=== PATIENT | male | born 1970 | race Caucasian/White ===

== ENCOUNTER 2021-04-04 10:16 | Outpatient (REF) | payer OTHER, SELFPAY ==
[2021-04-04 13:40] LABS: MANUAL DIFF FLAG NO
[2021-04-04 13:47] LABS: Basophils Percent Auto 0.8 % (0-2); Eosinophils Absolute Auto 0.2 X10*3/uL (0.0-0.4); Eosinophils Percent Auto 4.6 % (0-4); Hematocrit 45.4 % (42-52); Imm Gran Abs Auto 0.02 X10*3/uL (0.00-0.03); Imm Gran Pct Auto 0.4 % (0.0-0.4); Lymphocytes Absolute Auto 1.8 X10*3/uL (1.2-4.9); Lymphocytes Percent Auto 34.2 % (20-40); Mean Corpuscular HGB Conc 35.2 g/dl (31.0-36.0); Mean Corpuscular Hemoglobin 32.1 pg (27.0-33.0); Mean Corpuscular Volume 91.2 fL (80-98); Mean Platelet Volume 10.6 fL (9.4-12.4); Monocytes Absolute Auto 0.5 X10*3/uL (0.1-1.2); Monocytes Percent Auto 9.6 % (2-11); Neutrophils Absolute Auto 2.6 X10*3/uL (2.0-8.3); Neutrophils Percent Auto 50.4 % (45-73); Platelet Count 257 X10*3/uL (160-400); Red Blood Count 4.98 X10*6/uL (4.60-5.80); Red Cell Distribution Width 12.2 % (11.0-16.0); White Blood Count 5.2 X10*3/uL (4.8-10.8)
[2021-04-04 14:04] LABS: Alanine Aminotransferase 39 U/L (0-40); Albumin Level 4.6 g/dL (3.5-5.0); Alkaline Phosphatase 70 U/L (39-117); Anion Gap 13 (12-20); Aspartate Amino Transferase 25 U/L (5-37); Bilirubin Total 0.7 mg/dL (0.0-1.0); Blood Urea Nitrogen 12 mg/dL (9-16); Calcium 9.8 mg/dL (8.4-10.2); Carbon Dioxide 27 mmol/L (22-29); Chloride 104 mmol/L (96-108); Cholesterol 165 mg/dL; Estimated Glomerular Filt Rate > 60; Glucose Fasting 106 mg/dL (60-99); HDL Cholesterol 46 mg/dL; LDL Cholesterol Calculated 78 mg/dl; Potassium 4.7 mmol/L (3.3-5.1); Sodium 139 mmol/L (135-145); Total Protein 7.3 g/dL (6.5-8.0); Triglycerides 209 mg/dL
[2021-04-04 14:24] LABS: TSH reflex Free T4 1.18 uIU/mL (0.32-4.0)
[2021-04-04 14:38] LABS: Creatinine Urine 122.59 mg/dL; Microalbum/Creatinine Ratio Ur 5.7 ug/mg cr
== END 2021-04-04 10:17 | disposition home or self-care (01) ==
LOC: HO.WFDLDS 10:16
PROVIDERS: Visit Provider Family Medicine
DX: Z00.00 Encounter for general adult medical examination without abnormal findings (principal); I10 Essential (primary) hypertension
CPT/HCPCS: 36415; 80053; 80061; 82043; 84443; 85025

== ENCOUNTER 2021-09-08 08:54 | Outpatient (REF) | payer OTHER, SELFPAY ==
[2021-09-08 11:07] LABS: Estimated Average Glucose 123 mg/dL; Hemoglobin A1c % 5.9 %
[2021-09-08 11:24] LABS: Anion Gap 10 (12-20); Blood Urea Nitrogen 15 mg/dL (9-16); Calcium 9.7 mg/dL (8.4-10.2); Carbon Dioxide 29 mmol/L (22-29); Chloride 106 mmol/L (96-108); Estimated Glomerular Filt Rate > 60; Glucose Random 132 mg/dL (60-115); Potassium 4.8 mmol/L (3.3-5.1); Sodium 140 mmol/L (135-145)
[2021-09-08 12:17] LABS: Creatinine Urine 110.22 mg/dL; Microalbum/Creatinine Ratio Ur 6.3 ug/mg cr
== END 2021-09-08 08:55 | disposition home or self-care (01) ==
LOC: HO.WFDLDS 08:54
PROVIDERS: Visit Provider Family Medicine
DX: Z00.00 Encounter for general adult medical examination without abnormal findings (principal); E11.9 Type 2 diabetes mellitus without complications; I10 Essential (primary) hypertension
CPT/HCPCS: 36415; 80048; 82043; 83036

== ENCOUNTER 2022-03-30 07:20 | Outpatient (REF) | payer OTHER, SELFPAY ==
[2022-03-30 11:42] LABS: Alanine Aminotransferase 26 U/L (0-40); Albumin Level 4.5 g/dL (3.5-5.0); Alkaline Phosphatase 58 U/L (39-117); Anion Gap 12 (12-20); Aspartate Amino Transferase 18 U/L (5-37); Bilirubin Total 0.7 mg/dL (0.0-1.0); Blood Urea Nitrogen 14 mg/dL (9-16); Calcium 9.2 mg/dL (8.4-10.2); Carbon Dioxide 24 mmol/L (22-29); Chloride 107 mmol/L (96-108); Cholesterol 164 mg/dL; Estimated Glomerular Filt Rate > 60; Glucose Fasting 118 mg/dL (60-99); HDL Cholesterol 44 mg/dL; LDL Cholesterol Calculated 91 mg/dl; Potassium 4.5 mmol/L (3.3-5.1); Sodium 138 mmol/L (135-145); Total Protein 6.9 g/dL (6.5-8.0); Triglycerides 147 mg/dL
[2022-03-30 11:56] LABS: Prostate Specific Antigen Scr 0.25 ng/mL (<0.05-4.0); TSH reflex Free T4 1.23 uIU/mL (0.32-4.0)
== END 2022-03-30 07:21 | disposition home or self-care (01) ==
LOC: HO.WFDLDS 07:20
PROVIDERS: Visit Provider Family Medicine
DX: Z00.00 Encounter for general adult medical examination without abnormal findings (principal); Z12.5 Encounter for screening for malignant neoplasm of prostate
CPT/HCPCS: 36415; 80053; 80061; 84153; 84443

== ENCOUNTER 2022-05-16 07:00 | Outpatient (RCR) | payer OTHER, SELFPAY ==
--- NOTE | 2022-04-12 11:48 | MHC.PT.EP ---
[facility] [place] Office [place] [facility] [place] Office [address] Bella Mathew [address] [phone] F: [phone] F: [phone] F: [phone] F: [phone] Physical Therapy Plan of Care Date of Evaluation: Date of Surgery: NA Diagnosis: DORSALGIA Assessment: Pt IS 51 YO M REFERRED TO PT FROM DR CAIN WITH DORSALGIA. Pt REPORTS CHRONIC BACK PAIN (MRI IN PAST WITH NEUROSURGEON VISIT (SURGERY NOT RECOMMENDED) AND INJECTIONS WITH RELIEF IN THEL PAST). REPORTS THIS LAST BOUT OF BACK PAIN STARTED IN SEPTEMBER (HE ATTRIBUTES PAIN TO WORK..LONG DRIVES, LIFTING ETC) REPORTS AT TIMES (AFTER SIT) LEGS FEEL WEAK WHEN HE STANDS (NEG WEAKNESS NOTED IN QUAD/HS WITH MMT) BUT NOTED TO HAVE POOR CORE STRENGTH (UNABLE TO CLEAR SHLDER BLADES WITH SIT UP). Pt WITH TIGHTNESS NOTED IN TRUNK AND LE/HIP MMS. SHOULD BENEFIT FROM PT TO ADDRESS THESE ISSUES Frequency and Duration: The patient will be seen 2X/WK X 6WKS Short Term Goals: 1. INCREASED POSTURE AWARENESS AND AWARENESS BACK CARE 2. LESS LEG SXS REPORTED Fdc Goals: 1. I HEP WITH DC EX PLAN 2. DECREASED BACK PAIN AT LEAST 50% WITH ADLS 3. [place] ( [place] [facility] Treatment Plan: Modalities to reduce pain, spasms and effusion. Manual therapy to restore motion and function. Therapeutic exercise to improve strength and flexibility. Neuromuscular re-education for posture and balance. Therapeutic activities to return to functional activities of daily living. Electronically signed by: HARMEET KRISHNAMURTHY PT Please sign and return to therapist. Thank you for your referral.
--- NOTE | 2022-06-07 13:30 | MHC.PT.DC ---
[facility] [place] Office [place] Office [place] Office [address] Bella Mathew [address] [phone] F: [phone] F: [phone] F: [phone] F: [phone] Physical Therapy Discharge Report Diagnosis: DORSALGIA Date of Surgery: NA Date of Evaluation: 04/12/22 Date of Discharge: 06/07/22 Treatments to Date: 8 Cancellations to Date: No Shows to Date: Discharge Status: Achieved Goals Improved Function Independent with HEP Patient Elected to Stop Discharge Summary: PER ASSESSMENT AT LAST SESSION BY TANYA PAIGE PT,DPT:'Pt has attended 8 sessions of PT to date expressing significant improvement/ reduction in sx with HEP flexibility program. Pt has met STG/LTG to date . D/C pt to I HEP program. ' Electronically signed by: HARMEET KRISHNAMURTHY PT Please sign and return to therapist. Thank you for your referral.
== END 2022-06-07 13:30 | disposition home or self-care (01) ==
LOC: HO.PTWFD 07:00
PROVIDERS: PCP Family Medicine; Visit Provider Family Medicine
DX: M54.9 Dorsalgia, unspecified (principal)
CPT/HCPCS: 97110; 97140; 97161; 97530; 97535

== ENCOUNTER 2022-06-07 10:14 | Outpatient (REF) | payer OTHER, SELFPAY ==
--- NOTE | ~2022-06-07 | XR_ITS ---
EXAMINATION: XR LUMBOSACRAL SPINE CLINICAL INFORMATION: Dorsalgia COMPARISON: CT 12/05/2018. TECHNIQUE: Three views of the lumbosacral spine. FINDINGS: No fracture or subluxation. Vertebral body height and alignment maintained. Disc spaces are grossly maintained with small endplate osteophytes. Mild facet arthropathy at the lower lumbar spine. The sacroiliac joints are symmetric. The sacrum is intact. Normal bowel gas pattern. XR/XR lumbar spine 2-3V IMPRESSION: Small osteophytes of the lumbar spine. Mild facet arthropathy.
== END 2022-06-07 10:15 | disposition home or self-care (01) ==
LOC: HO.XRAY 10:14
PROVIDERS: PCP Family Medicine; Visit Provider Family Medicine
DX: M54.9 Dorsalgia, unspecified (principal)
CPT/HCPCS: 72100

== ENCOUNTER 2022-08-11 14:56 | Outpatient (REF) | payer OTHER, SELFPAY | END 2022-08-11 14:57 | disposition home or self-care (01) | LOC: HO.XRAY 14:56 | PROVIDERS: PCP Family Medicine; Visit Provider Family Medicine | DX: Z13.89 Encounter for screening for other disorder (principal) ==

== ENCOUNTER 2023-02-20 07:02 | Outpatient (REF) | payer OTHER, SELFPAY ==
[2023-02-20 11:41] LABS: Anion Gap 12 (12-20); Blood Urea Nitrogen 16 mg/dL (9-16); Calcium 9.7 mg/dL (8.4-10.2); Carbon Dioxide 27 mmol/L (22-29); Chloride 104 mmol/L (96-108); Estimated Glomerular Filt Rate > 60; Glucose Fasting 114 mg/dL (60-99); Potassium 4.8 mmol/L (3.3-5.1); Sodium 138 mmol/L (135-145)
== END 2023-02-20 07:03 | disposition home or self-care (01) ==
LOC: HO.WFDLDS 07:02
PROVIDERS: Visit Provider Family Medicine
DX: E11.9 Type 2 diabetes mellitus without complications (principal)
CPT/HCPCS: 36415; 80048

== ENCOUNTER 2023-04-03 07:02 | Outpatient (REF) | payer OTHER, SELFPAY ==
[2023-04-03 11:37] LABS: Appearance Urine Turbid; Color Urine Dark Yellow; Glucose Urine UA Negative (Negative); Leukocyte Esterase Urine Negative (Negative); Nitrite Urine Negative (Negative); PH 5.5 (5.0-9.0); Specific Gravity - Urine >= 1.030 (1.005-1.025); Urine Blood Negative (Negative); Urine Ketones Negative (Negative); Urine Protein Trace mg/dL (Neg-Trace)
[2023-04-03 12:48] LABS: Microalbum/Creatinine Ratio Ur 19.9 ug/mg cr
[2023-04-03 13:16] LABS: Alanine Aminotransferase 32 U/L (0-40); Albumin Level 4.4 g/dL (3.5-5.0); Alkaline Phosphatase 69 U/L (39-117); Anion Gap 11 (12-20); Aspartate Amino Transferase 19 U/L (5-37); Bilirubin Total 0.7 mg/dL (0.0-1.0); Blood Urea Nitrogen 16 mg/dL (9-16); Calcium 9.9 mg/dL (8.4-10.2); Carbon Dioxide 27 mmol/L (22-29); Chloride 104 mmol/L (96-108); Cholesterol 164 mg/dL; Estimated Glomerular Filt Rate > 60; Glucose Fasting 108 mg/dL (60-99); HDL Cholesterol 43 mg/dL; LDL Cholesterol Calculated 97 mg/dl; Potassium 4.4 mmol/L (3.3-5.1); Sodium 138 mmol/L (135-145); TSH reflex Free T4 1.55 uIU/mL (0.32-4.0); Triglycerides 121 mg/dL
[2023-04-03 13:17] LABS: Prostate Specific Antigen Scr 0.32 ng/mL (<0.05-4.0)
== END 2023-04-03 07:03 | disposition home or self-care (01) ==
LOC: HO.WFDLDS 07:02
PROVIDERS: Visit Provider Family Medicine
DX: Z00.00 Encounter for general adult medical examination without abnormal findings (principal); Z12.5 Encounter for screening for malignant neoplasm of prostate; I10 Essential (primary) hypertension
CPT/HCPCS: 36415; 80053; 80061; 81003; 82043; 84153; 84443

== ENCOUNTER 2023-04-06 08:48 | Outpatient (AMB) | payer OTHER, SELFPAY ==
--- NOTE | 2023-04-06 09:00 | MHC.PC.OV ---
Vital Signs 04/06/23 09:02 Height 5 ft 11 in Weight 280 lb 6 oz BMI 39.1 BP 126/68 Blood Pressure Location Lt brachial Position Sitting Respiration 15 Pulse 88 Pulse Source Pulse Oximeter Temp 98.9 F Temp Source Oral Pulse Oximetry (%) 96 Oxygen Delivery Method Room Air Intake Visit Reasons: CPE with f/u labs and health maint. Intake Note: Patient is here for physical and to follow up with labs. Patient reports he does not have any concerns. Cap Blocker Required: No Accompanied by: Self / Same As Patient Allergies No Known Allergies [No Known Allergies*] Allergy (Verified 04/06/23 09:07) Medication List - Last Reconciled 04/06/23 by Mateus Frye MD atorvastatin 20 mg PO DAILY dorzolamide-timolol 22.3-6.8 mg/mL 1 drp ophthalmic (eye) BID lisinopril 40 mg PO DAILY metformin 500 mg PO DAILY Tobacco use date assessed: 02/22/23 Dental Screening Dental Screen Date: 04/06/23 Did you have a dental visit in the last 12 months?: No Did you have a dental problem in the last 6 months where you did not have access to dental care?: No Was dental information given to patient?: Patient declined HPI CPE with f/u labs and health maint. HPI Details 52 y/o male presents for a CPE with f/u labs and health maintenance. Labs were drawn 04/03/23. Triglycerides 121. TC 164. LDL 97. HDL 43. Blood pressure today is 126/68. He is on lisinopril 40mg daily. He reports changes to his testicles. He denies any other problems such as pain with urinating/ejaculating. He reports constipation. [facility] Social History Housing: House Alcohol intake: current Alcohol intake frequency: holidays/special occasions only Patient Tobacco Use Status: Current everyday Tobacco user Tobacco use type: Smokeless Tobacco Years Smoked: Not smoking since June of 2022, Uses pouch. e-Cigarette/Vaping Use: Never Used service: No Current occupational status: employed Current occupation: [employer] Current occupational exposures/hazards: No Cognitive needs: No Hearing needs: No Vision needs: Yes (wears glasses) Questionnaire Thrive Questionnaire Date Thrive assessed: 05/05/21 AGUSTINA-7 AMB Questionnaire AGUSTINA-7 Date AGUSTINA - 7 assessed: 05/05/21 Source: Developed by Drs. Maikol Chaudhary, Sherin Barragan, Michael Mitchell and colleagues, with an educational rebecca from [employer]. Review of Systems Const Denies chills, Denies fatigue, Denies fever(s), Denies headache(s) and Denies weakness Eyes Denies change in vision ENT Denies dizziness, Denies headache(s), Denies hearing loss, Denies nasal congestion, Denies sinus pain, Denies sinus pressure and Denies sore throat Card Denies chest pain, Denies lightheadedness, Denies dyspnea and Denies other (palpitations) Resp Denies cough, Denies dyspnea and Denies wheezing GI Denies abdominal pain, Denies melena, Denies hematochezia, Denies change in bowel habits, Denies dyspepsia and Denies nausea Denies hematuria and Denies dysuria Musc Denies abnormal gait, Denies myalgias, Denies arthralgias, Denies numbness and Denies tingling Skin/Breast Denies rash, Denies unusual bruising and Denies wounds Neuro Denies abnormal gait, Denies dizziness, Denies headache(s), Denies memory loss, Denies numbness, Denies Sensory deficit (Neuro), Denies tingling and Denies weakness Psych Denies anxiety, Denies depression and Denies memory loss Endo Denies cold intolerance, Denies fatigue, Denies heat intolerance, Denies polydipsia and Denies polyuria Bakari/Lymph Denies easy bleeding and Denies easy bruising Aller/Immun Denies wheezing Physical exam (Primary Care) Vital Signs: Last Vital Signs Temp 98.9 F 04/06/23 09:02 Pulse 88 04/06/23 09:02 Resp 15 04/06/23 09:02 BP 126/68 04/06/23 09:02 Pulse Ox 96 04/06/23 09:02 Oxygen Delivery Method Room Air 04/06/23 09:02 BMI result Body Mass Index 39.1 Tobacco/Smoking Status: Tobacco use Status Tobacco use date assessed 02/22/23 04/06/23 09:09 Patient Tobacco Use Status Current everyday Tobacco 04/06/23 09:09 Tobacco use type Smokeless Tobacco 07/28/23 09:09 e-Cigarette/Vaping Use Never Used 04/06/23 09:09 Thrive Assessment: Date of Thrive Assessment Date Thrive assessed 05/05/21 04/06/23 09:09 Const General: no acute distress, well developed, alert and awake Nutritional Appearance: well nourished Orientation/consciousness: patient oriented x3 HENMT Head: Yes normocephalic and Yes atraumatic Ears: hearing grossly normal bilaterally and TM's normal bilaterally General nose exam: Normal external nose present and Normal nares present Mouth: Normal oral and palatal mucosa present and moist mucous membranes Teeth and gingiva: dentition normal Throat: Yes posterior oropharynx normal Eyes General: appearance normal, both eyes and all related structures Pupils: Equal, round and reactive pupils present and Pupil accommodation reflex normal EOM: EOMs intact bilaterally Neck Neck: Yes normal visual inspection, Yes no lymphadenopathy and Yes trachea midline Thyroid: Thyroid normal Carotids: no bruits Lymphatic: no lymphadenopathy noted Chest Chest palpation & inspection: normal inspection of the chest Resp Effort & Inspection: normal respiratory effort Auscultation: clear to auscultation bilaterally Cardio Rate: regular rate Rhythm: regular rhythm Heart sounds: S1 normal heart sound present, S2 normal heart sound present, no gallops, no murmurs and no rubs Bruits: no abdominal aortic bruits and no carotid bruits GI Palpation (GI): No Abdominal aortic bruit present, Soft to palpation, nontender, No hepatosplenomegaly present and No Rebound tenderness present Auscultation: normal bowel sounds General: Yes no CVA tenderness Back/Spine/Pelvis Back: no CVA tenderness Cervical Spine: cervical ROM normal and No Cervical spine tenderness Thoracic/Lumbar Spine: thoraco-lumbar ROM normal, No pain with thoraco-lumbar ROM, No thoracic spinal tenderness and No lumbar spinal tenderness Skin Lesions: no lesions Rashes: no rashes Trauma: no lacerations or abrasions Wounds: no wounds Nails: normal Neuro General: patient oriented x3 Cranial nerves: Yes Equal, round and reactive pupils present Cognition (Neuro): normal cognition Gait exam (Neuro): Normal gait present Motor exam (neuro): 5/5 motor strength present throughout Sensory Exam: No Sensory deficit (Neuro) Deep tendon reflexes (DTR's): Right patellar reflex intensity grade: 2+ and Left patellar reflex intensity grade: 2+ Extrem General: Yes normal to inspection and No edema Psych Appearance: grossly normal Affect: normal affect Attitude: cooperative Thought process: Normal thought process present Assessment and Plan Assessment & Plan (1) Adult general medical exam: Code(s): Z00.00 - Encounter for general adult medical examination without abnormal findings Plan: 52-year-old male presents for complete physical exam Encouraged healthy diet with active lifestyle and plenty of exercise (2) Diabetes type 2, controlled: Code(s): E11.9 - Type 2 diabetes mellitus without complications Plan: Diabetes was well controlled at recent visit; A1c was 6.0% Gets regular eye exams Continue current medication regimen (3) Essential hypertension: Code(s): I10 - Essential (primary) hypertension Plan: Blood pressure is controlled. Goal is less than 140/90 Continue lisinopril (4) Hyperlipidemia: Code(s): E78.5 - Hyperlipidemia, unspecified Plan: Lipids are well controlled. Goal for LDL and patient with diabetes is less than 100 Continue atorvastatin (5) Constipation: Code(s): K59.00 - Constipation, unspecified Plan: Advised patient increase water intake Can also use a soluble fiber supplement (6) Screening for prostate cancer: Code(s): Z12.5 - Encounter for screening for malignant neoplasm of prostate Plan: PSA was within normal limits (7) Testicular lump: Code(s): N50.89 - Other specified disorders of the male genital organs Plan: Testicular lump at posterior aspect left testicle Check ultrasound Check urinalysis and GC/chlamydia Will follow-up with patient in a few weeks (8) Screening for colon cancer: Code(s): Z12.11 - Encounter for screening for malignant neoplasm of colon Plan: Will discuss at next visit Orders: Orders UA and rflx microscopic Today N50.89 - Other specified disorders of the male genital organs US scrotum Today N50.89 - Other specified disorders of the male genital organs CT NG by PCR Today N50.89 - Other specified disorders of the male genital organs Coding Level of Care Code Est Pt Level 3 (70042) Est Pt Prev Care 40-64y(26128) Diagnoses Adult general medical exam Z00.00 Diabetes type 2, controlled E11.9 Essential hypertension I10 Hyperlipidemia E78.5 Constipation K59.00 Screening for prostate cancer Z12.5 Testicular lump N50.89 Screening for colon cancer Z12.11
[2023-04-06 09:02] VITALS: BP 126/68; PULSE 88; RESP 15; TEMP 37.2; O2SAT 96; BMI 39.1
== END 2023-04-06 10:14 | disposition home or self-care (01) ==
PROVIDERS: PCP Family Medicine; Visit Provider Family Medicine
DX: Z00.00 Encounter for general adult medical examination without abnormal findings (principal); E11.9 Type 2 diabetes mellitus without complications; I10 Essential (primary) hypertension; N50.89 Other specified disorders of the male genital organs; E78.5 Hyperlipidemia, unspecified; K59.00 Constipation, unspecified
CPT/HCPCS: 99213; 99396

== ENCOUNTER 2023-04-06 12:01 | Outpatient (REF) | payer OTHER, SELFPAY ==
[2023-04-06 14:43] LABS: CT PCR NOT DETECTED (Not Detect.); NG PCR NOT DETECTED (Not Detect.)
== END 2023-04-06 12:02 | disposition home or self-care (01) ==
LOC: HO.LNP 12:01
PROVIDERS: Visit Provider Family Medicine
DX: N50.89 Other specified disorders of the male genital organs (principal); Z20.2 Contact with and (suspected) exposure to infections with a predominantly sexual mode of transmission
CPT/HCPCS: 0353U

== ENCOUNTER 2023-04-11 15:06 | Outpatient (REF) | payer OTHER, SELFPAY ==
--- NOTE | ~2023-04-11 | US_ITS ---
EXAMINATION: US SCROTUM CLINICAL INFORMATION: Testicular lump. COMPARISON: None available. TECHNIQUE: A sonogram of the scrotum was performed assessing mckee-scale appearance and color Doppler flow. Spectral Doppler analysis of the arterial and venous flow were performed in the testes bilaterally. FINDINGS: RIGHT: Right testicle measures 5.6 x 2.3 x 3.2 cm, volume 22 mL. Spectral Doppler analysis of the arterial and venous flow is normal in the right testis. Right epididymal head is normal in size. No right varicocele is seen. Mild tubular ectasia of the rete testes. Right epididymal Doppler flow is normal. LEFT: Left testicle measures 5.5 x 2.7 x 4.0 cm, volume 31 mL. No focal testicular parenchymal lesions are visualized. Spectral Doppler analysis of the arterial and venous flow is normal in the left testis. Left epididymal head is normal in size. No left varicocele is seen. Moderate to severe tubular ectasia of the rete testes. 4.4 x 3.7 x 2.7 cm left epididymal cyst versus spermatocele. Left epididymal Doppler flow is normal. Nonspecific, right anterior scrotal wall, 0.5 x 0.5 x 0.4 cm, poorly defined, ovoid, hypoechoic, hypervascular structure located less than 1 mm below the skin surface. 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 4.4 x 3.7 x 2.7 cm left epididymal cyst versus spermatocele. Nonspecific, right anterior scrotal wall, 0.5 x 0.5 x 0.4 cm, poorly defined, ovoid, hypoechoic, hypervascular structure located less than 1 mm below the skin surface. Recommend clinical correlation. Differential diagnosis includes, but is not limited to, sebaceous cyst, possibly inflamed.
== END 2023-04-11 15:07 | disposition home or self-care (01) ==
LOC: HO.HMGCX 15:06
PROVIDERS: PCP Family Medicine; Visit Provider Family Medicine
DX: N50.89 Other specified disorders of the male genital organs (principal)
CPT/HCPCS: 76870

== ENCOUNTER 2023-04-26 09:05 | Outpatient (AMB) | payer OTHER, SELFPAY ==
[2023-04-26 09:17] VITALS: BP 128/74; PULSE 68; RESP 12; TEMP 36.4; O2SAT 99; BMI 39.7
--- NOTE | 2023-04-26 09:17 | MHC.PC.OV ---
Vital Signs 04/26/23 09:17 Height 5 ft 11 in Weight 285 lb BMI 39.7 BP 128/74 Blood Pressure Location Rt brachial Position Sitting Respiration 12 Pulse 68 Temp 97.5 F Temp Source Temporal Artery Scan Pulse Oximetry (%) 99 Oxygen Delivery Method Room Air Intake Visit Reasons: f/u ultrasound for testicular lump Atmospheric Drier Tender Required: No Accompanied by: Self / Same As Patient Allergies No Known Allergies [No Known Allergies*] Allergy (Verified 04/26/23 09:22) Tobacco use date assessed: 02/22/23 Dental Screening Dental Screen Date: 04/26/23 Did you have a dental visit in the last 12 months?: No Did you have a dental problem in the last 6 months where you did not have access to dental care?: No Was dental information given to patient?: Yes HPI f/u ultrasound for testicular lump HPI Details 52 y/o male presents to f/u ultrasound for testicular lump. Scrotum ultrasound 04/11/23 showed bilateral tubular ectasia of the rete testes, left significantly larger than right. Per note: Nonspecific, right anterior scrotal wall, 0.5 x 0.5 x 0.4 cm, poorly defined, ovoid, hypoechoic, hypervascular structure located less than 1 mm below the skin surface. Recommend clinical correlation. Differential diagnosis includes, but is not limited to, sebaceous cyst, possibly inflamed. Pt notes he had a colonoscopy about 3 years ago at [facility]. He reports they had wanted to see him back in 7 years. HPI Comments History of Present Illness Details Documentation assistance for Mateus Frye MD, was provided by Heber Mcfarlane,? Telecommunication Operator on 04/26/2023 9:55 AM EST. I, Dr. Frye, have read, observed, and verified documentation.? [facility] Medical History (Updated 04/26/23 @ 09:24 by Radha Fierro MA) No pertinent past medical history Surgical History (Updated 04/26/23 @ 09:24 by Radha Fierro MA) No pertinent past surgical history Social History Housing: House Alcohol intake: current Alcohol intake frequency: holidays/special occasions only Patient Tobacco Use Status: Current everyday Tobacco user Tobacco use type: Smokeless Tobacco Years Smoked: Not smoking since June of 2022, Uses pouch. e-Cigarette/Vaping Use: Never Used service: No Current occupational status: employed Current occupation: [employer] Current occupational exposures/hazards: No Cognitive needs: No Hearing needs: No Vision needs: Yes (wears glasses) Questionnaire Thrive Questionnaire Date Thrive assessed: 05/05/21 AGUSTINA-7 AMB Questionnaire AGUSTINA-7 Date AGUSTINA - 7 assessed: 05/05/21 Source: Developed by Drs. Maikol Chaudhary, Sherin Barragan, Michael Mitchell and colleagues, with an educational rebecca from [employer]. Physical exam (Primary Care) Vital Signs: Last Vital Signs Temp 97.5 F 04/26/23 09:17 Pulse 68 04/26/23 09:17 Resp 12 04/26/23 09:17 BP 128/74 04/26/23 09:17 Pulse Ox 99 04/26/23 09:17 Oxygen Delivery Method Room Air 04/26/23 09:17 BMI result Body Mass Index 39.7 Tobacco/Smoking Status: Tobacco use Status Tobacco use date assessed 02/22/23 04/26/23 09:24 Patient Tobacco Use Status Current everyday Tobacco 04/26/23 09:24 Tobacco use type Smokeless Tobacco 04/26/23 09:24 e-Cigarette/Vaping Use Never Used 04/26/23 09:24 Thrive Assessment: Date of Thrive Assessment Date Thrive assessed 05/05/21 04/26/23 09:24 Assessment and Plan Assessment & Plan (1) Testicular lump: Code(s): N50.89 - Other specified disorders of the male genital organs Plan: Possible epididymal head cyst versus spermatocele Will refer to Urology as this remains painful for patient (2) Screening for colon cancer: Code(s): Z12.11 - Encounter for screening for malignant neoplasm of colon Plan: Patient had a colonoscopy a few years ago at [facility] it was told to follow-up in 7 years. He is up-to-date Orders: Orders TDaP Immunization Today Z23 - Encounter for immunization Referrals Urology Referral N50.89 - Other specified disorders of the male genital organs Medications: New Boostrix Tdap (diphth,pertus(acell),tetanus) 0.5 mL IM ONCE 0.5 mL 0RF NS Z23 - Encounter for immunization Coding Level of Care Code Est Pt Level 3 (46578) Diagnoses Testicular lump N50.89 Screening for colon cancer Z12.11
== END 2023-04-26 10:14 | disposition home or self-care (01) ==
PROVIDERS: PCP Family Medicine; Visit Provider Family Medicine
DX: N50.89 Other specified disorders of the male genital organs (principal); Z12.11 Encounter for screening for malignant neoplasm of colon; Z23 Encounter for immunization
CPT/HCPCS: 90471; 90715; 99213

== ENCOUNTER 2023-06-04 13:08 | Outpatient (AMB) | payer OTHER, SELFPAY ==
--- NOTE | 2023-06-04 13:10 | MHC.OFFVIS ---
Intake Intake Visit Reasons: epididymal cyst versus spermatocele Intake Note: NEW Patient presents today to established treatment for Epididymal Cyst Versus Spermatocele: Meds- None Allergies to Antibiotic- No Known Allergies Blood Thinner- None Engineering Project Manager Required: No Accompanied by: Self / Same As Patient Allergies No Known Allergies [No Known Allergies*] Allergy (Verified 06/04/23 13:10) HPI HPI Comments History of Present Illness Details Jose Rafael is a 52-year-old male who presents today to the office to establish as a new patient for an evaluation of epididymal cyst versus spermatocele. 06/04/2023? He is present today for an evaluation of scrotal swelling. He was referred to urology office by his PCP. He states he noted in November that his scrotum was larger than usual, denies testicular pain or changes in urination. 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 4.4 x 3.7 x 2.7 cm left epididymal cyst versus spermatocele. No testicular masses, normal flow. Discussed exam and US is consistent with benign epididymal cyst, will monitor to see if it gets larger or is symptomatic/causes pain. Evaluation today?UA? leukocytes: negative; blood: negative. Plan: Follow up in 9 months to re-evaluate and US of the scrotum at that time. [facility] Medical History No pertinent past medical history Surgical History No pertinent past surgical history Social History Housing: House Alcohol intake: current Alcohol intake frequency: holidays/special occasions only Patient Tobacco Use Status: Current everyday Tobacco user Tobacco use type: Smokeless Tobacco Years Smoked: Not smoking since June of 2022, Uses pouch. e-Cigarette/Vaping Use: Never Used service: No Current occupational status: employed Current occupation: [employer] Current occupational exposures/hazards: No Cognitive needs: No Hearing needs: No Vision needs: Yes (wears glasses) Review of Systems Const All systems reviewed & are unremarkable except as noted in HPI and below Reports no additional complaints Eyes Reports no additional complaints ENT Reports no additional complaints Card Denies dyspnea Resp Denies cough and Denies dyspnea GI Reports no additional complaints Musc Reports no additional complaints Skin/Breast Denies rash and Denies unusual bruising Neuro Reports no additional complaints Psych Reports no additional complaints Endo Reports no additional complaints Bakari/Lymph Reports no additional complaints Aller/Immun Reports no additional complaints Physical Exam Const General: healthy appearing, no acute distress and well developed Orientation/consciousness: patient oriented x3 HEENT Head: Yes normocephalic and Yes atraumatic Eyes Conjunctivae: conjunctivae normal Neck Neck: Yes normal visual inspection Chest Chest palpation & inspection: normal inspection of the chest Resp Effort & Inspection: normal respiratory effort Cardio Rate: regular rate GI Inspection: Yes normal to inspection Palpation (GI): Soft to palpation Other: left epididymal cyst moderate size Penis: normal penis Scrotum: scrotal swelling on the left (mild) and other (nontender) Testes: Testes normal Skin General skin exam: no rashes or lesions noted Neuro General: patient oriented x3 Extrem General: No pedal edema Psych Appearance: grossly normal Affect: normal affect Results AMB Urinalysis, Automated UA Leukoctes 0 Randy/uL Last Edit by Bela Baum Luis Manuel on 06/04/23 13:21 UA Nitrite Negative Last Edit by Bela Baum Luis Manuel on 06/04/23 13:21 UA Urobilinogen 0.2 mg/dL Last Edit by Bela Baum Luis Manuel on 06/04/23 13:21 UA Protein 0 mg/dL Last Edit by Bela Baum Luis Manuel on 06/04/23 13:21 UA pH 6.5 Last Edit by Bela Baum Luis Manuel on 06/04/23 13:21 UA Blood 0 Terrance/uL Last Edit by Bela Baum [facility] on 06/04/23 13:21 UA Specific [place] 1.015 Last Edit by Bela Baum Luis Manuel on 06/04/23 13:21 UA Ketone Negative Last Edit by Bela Baum Luis Manuel on 06/04/23 13:21 UA Bilirubin 0 mg/dL Last Edit by Bela Baum [facility] on 06/04/23 13:21 UA Glucose 0 mg/dL Last Edit by ISMAEL Ma on 06/04/23 13:21 Results Reviewed Results Reviewed: Laboratory Last Values Urine pH (Auto) 6.5 06/04/23 13:15 Specific [place] (Auto) 1.015 06/04/23 13:15 Urine Protein (Auto) 0 mg/dL 06/04/23 13:15 Glucose (UA)(Auto) 0 mg/dL 06/04/23 13:15 Urine Ketones (Auto) Negative 06/04/23 13:15 Urine Blood (Auto) 0 Terrance/uL 06/04/23 13:15 Urine Nitrite (Auto) Negative 06/04/23 13:15 Urine Bilirubin (Auto) 0 mg/dL 06/04/23 13:15 Urine Urobilinogen (Auto) 0.2 mg/dL 06/04/23 13:15 Leukocyte Esterase (Auto) 0 Randy/uL 06/04/23 13:15 Date of Service: 04/11/23 EXAMINATION: US SCROTUM CLINICAL INFORMATION:? Testicular lump. COMPARISON:? None available. FINDINGS: RIGHT: Right testicle measures 5.6 x 2.3 x 3.2 cm, volume 22 mL. Spectral Doppler analysis of the arterial and venous flow is normal in the right testis. Right epididymal head is normal in size. No right varicocele is seen. Mild tubular ectasia of the rete testes. Right epididymal Doppler flow is normal. LEFT: Left testicle measures 5.5 x 2.7 x 4.0 cm, volume 31 mL. No focal testicular parenchymal lesions are visualized. Spectral Doppler analysis of the arterial and venous flow is normal in the left testis. Left epididymal head is normal in size. No left varicocele is seen. Moderate to severe tubular ectasia of the rete testes. 4.4 x 3.7 x 2.7 cm left epididymal cyst versus spermatocele. Left epididymal Doppler flow is normal. Nonspecific, right anterior scrotal wall, 0.5 x 0.5 x 0.4 cm, poorly defined, ovoid, hypoechoic, hypervascular structure located less than 1 mm below the skin surface. 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 4.4 x 3.7 x 2.7 cm left epididymal cyst versus spermatocele. Nonspecific, right anterior scrotal wall, 0.5 x 0.5 x 0.4 cm, poorly defined, ovoid, hypoechoic, hypervascular structure located less than 1 mm below the skin surface. Recommend clinical correlation. Differential diagnosis includes, but is not limited to, sebaceous cyst, possibly inflamed. Assessment & Plan Assessment & Plan (1) Epididymal cyst: Code(s): N50.3 - Cyst of epididymis (2) Scrotal swelling: Code(s): N50.89 - Other specified disorders of the male genital organs Plan Follow up in 9 months to re-evaluate and US of the scrotum prior. Orders: Orders AMB Urinalysis Automated Today Z13.9 - Encounter for screening, unspecified US scrotum 8 Months N50.3 - Cyst of epididymis Patient Instructions: The patient had an opportunity to ask questions regarding treatment plan. All questions were answered. Imaging, Laboratory studies and physical exam results were discussed and reviewed in detail. No major barriers to understanding were identified. The patient expressed understanding and agreement with the above treatment plan.? ? ? The patient is aware they should contact our office by phone for worsening of their current condition or the appearance of new symptoms. Compliance is encouraged with any medications and followup testing that is ordered.? ? ? It is a privilege to be allowed the opportunity to participate in the urologic care of your patient. If you have any questions or concerns regarding treatment for the above conditions please do not hesitate to contact me. The office telephone contact is [phone].? ? ? This note is constructed in part using voice recognition software. While every effort has been made to ensure accuracy report checker errors may have been included.? ? ? Yours sincerely,? ? ? Shahriar Holland MD? ? Coding Level of Care Code New Pt Level 3 (40847) Diagnoses Epididymal cyst N50.3 Scrotal swelling N50.89
== END 2023-06-04 13:37 | disposition home or self-care (01) ==
PROVIDERS: PCP Family Medicine; Visit Provider Urology
DX: N50.3 Cyst of epididymis (principal); N50.89 Other specified disorders of the male genital organs; Z13.9 Encounter for screening, unspecified
CPT/HCPCS: 99203

== ENCOUNTER → 2023-06-04 13:08 | Outpatient (BNVA) | payer OTHER, SELFPAY | PROVIDERS: PCP Family Medicine; Visit Provider Urology | DX: N50.3 Cyst of epididymis (principal); N50.89 Other specified disorders of the male genital organs | CPT/HCPCS: 81003 ==

== ENCOUNTER 2023-08-17 08:15 | Outpatient (AMB) | payer OTHER, SELFPAY ==
--- NOTE | 2023-08-17 08:25 | MHC.PC.OV ---
Vital Signs 08/17/23 08:26 Height 6 ft Weight 284 lb BMI 38.5 BP 126/68 Blood Pressure Location Rt brachial Position Sitting Respiration 13 Pulse 75 Pulse Source Pulse Oximeter Pulse Oximetry (%) 96 Oxygen Delivery Method Room Air Intake Visit Reasons: f/u diabetes, see comments Intake Note: Patient is here for a follow up regarding diabetes and hypertension. Patient reports no concerns at this time. Clinical Genetics Laboratory Chief Required: No Accompanied by: Self / Same As Patient Allergies No Known Allergies [No Known Allergies*] Allergy (Verified 08/17/23 08:32) Medication List - Last Reconciled 08/17/23 by Mateus Frye MD atorvastatin 20 mg PO DAILY dorzolamide-timolol 22.3-6.8 mg/mL 1 drp ophthalmic (eye) BID lisinopril 40 mg PO DAILY metformin 500 mg PO DAILY Tobacco use date assessed: 08/17/23 Dental Screening Dental Screen Date: 08/17/23 Did you have a dental visit in the last 12 months?: No Did you have a dental problem in the last 6 months where you did not have access to dental care?: No Was dental information given to patient?: Patient has dentist HPI f/u diabetes, see comments HPI Details 52 y/o male presents to f/u diabetes and hypertension. A1c today 08/17/23 6.0%. He is on metformin 500mg daily. He reports he has been watching his diabetic diet. Blood pressure today 126/68. He is on lisinopril 40mg daily. [facility] Medical History No pertinent past medical history Surgical History No pertinent past surgical history Social History (Updated 08/17/23 @ 08:34 by Aleta Pulido CMA) Household Members: Spouse and Children Housing: House Alcohol intake: current Alcohol intake frequency: holidays/special occasions only Patient Tobacco Use Status: Current everyday Tobacco user Tobacco use type: Smokeless Tobacco Years Smoked: Not smoking since June of 2022, Uses pouch. e-Cigarette/Vaping Use: Never Used Substance Use Type: Marijuana service: No Current occupational status: employed Current occupation: [employer] Current occupational exposures/hazards: No Sexual orientation: Unable to collect Gender identity: Unable to collect Cognitive needs: No Hearing needs: No Vision needs: Yes (wears glasses) Questionnaire PHQ-9 Over the last 2 weeks, how often have you been bothered by any of the following problems? 1. Little interest or pleasure in doing things: not at all 2. Feeling down, depressed, or hopeless: not at all 3. Trouble falling or staying asleep, or sleeping too much: not at all 4. Feeling tired or having little energy: not at all 5. Poor appetite or overeating: not at all 6. Feeling bad about yourself - or that you are a failure or have let yourself or your family down: not at all 7. Trouble concentrating on things, such as reading the newspaper or watching television: not at all 8. Moving or speaking so slowly that other people could have noticed. Or the opposite - being so fidgety or restless that you have been moving around a lot more than usual: not at all 9. Thoughts that you would be better off or of hurting yourself in some way: not at all Total score: 0 Depression Screening Interpretation: Negative Depression Screening Done: Yes 03128 - PHQ-9 Billing: Yes Source: Developed by Drs. Maikol Chaudhary, Sherin Barragan, Michael Mitchell and colleagues, with an educational rebecca from [employer]. Thrive Questionnaire Date Thrive assessed: 08/17/23 I am a: Patient What is your living situation today?: I have a steady place to live Within the past 12 months, did the food you bought not last and you didn't have the money to get more?: Never true Within the past 12 months, did you worry whether your food would run out before you got money to buy more?: Never true Do you have trouble paying for medicines?: No Do you have trouble getting transportation to medical appointments?: No Do you have trouble paying your heating and electricity bill?: No Do you have trouble taking care of your child, family member or friend?: No Do you have trouble with day-to-day activities such as bathing, preparing meals, shopping, managing finances, etc.?: No Are you currently unemployed and looking for a job?: No Are you interested in more education?: No Please select the resources that you would like help with: None Currently or been in a relationship where the following occur: no concerns reported AUDIT C Alcohol Use Questionnaire (AUDIT-C) 1. How often do you have a drink containing alcohol?: Never 3. How often do you have six or more drinks on one occasion?: Never Total Score: 0 AGUSTINA-7 AMB Questionnaire AGUSTINA-7 Date AGUSTINA - 7 assessed: 08/17/23 Feeling nervous, anxious, or on edge: 0 = Not at all Not being able to stop or control worryin = Not at all Worrying too much about different things: 0 = Not at all Trouble relaxin = Not at all Being so restless that it is hard to sit still: 0 = Not at all Becoming easily annoyed or irritable: 0 = Not at all Feeling afraid as if something awful might happen: 0 = Not at all Total AGUSTINA-7 score (0-4 normal; 5-9 mild; 10-14 moderate; 15-21 severe): 0 Source: Developed by Drs. Maikol Chaudhary, Sherin Barragan, Michael Mitchell and colleagues, with an educational rebecca from [employer]. AGUSTINA-7 Assessment Billing AGUSTINA-7 Assessment Tool: AGUSTINA-7 Assessment 28794 Review of Systems Const Denies chills, Denies fatigue, Denies fever(s), Denies headache(s) and Denies weakness ENT Denies dizziness and Denies headache(s) Card Denies dyspnea Resp Denies cough, Denies dyspnea, Denies wheezing and Denies other (shortness of breath) Musc Reports back pain, Denies numbness and Denies tingling Neuro Denies dizziness, Denies headache(s), Denies numbness, Denies tingling and Denies weakness Psych Denies anxiety and Denies depression Endo Denies fatigue Aller/Immun Denies wheezing Physical exam (Primary Care) Vital Signs: Last Vital Signs Pulse 75 08/17/23 08:26 Resp 13 08/17/23 08:26 BP 126/68 08/17/23 08:26 Pulse Ox 96 08/17/23 08:26 Oxygen Delivery Method Room Air 08/17/23 08:26 BMI result Body Mass Index 38.5 Tobacco/Smoking Status: Tobacco use Status Tobacco use date assessed 08/17/23 08/17/23 08:35 Patient Tobacco Use Status Current everyday Tobacco 08/17/23 08:34 Tobacco use type Smokeless Tobacco 08/17/23 08:34 e-Cigarette/Vaping Use Never Used 08/17/23 08:34 PHQ-9: PHQ-9 Score PHQ-9: Total score 0 08/17/23 08:48 Depression Screening Interpretation: Negative Thrive Assessment: Date of Thrive Assessment Date Thrive assessed 08/17/23 08/17/23 08:35 Currently or been in a relationship where the following occur: no concerns reported Const General: well developed; No acute distress Nutritional Appearance: well nourished Orientation/consciousness: patient oriented x3 HENMT Head: Yes normocephalic and Yes atraumatic Eyes General: appearance normal, both eyes and all related structures Pupils: Equal, round and reactive pupils present EOM: EOMs intact bilaterally Resp Effort & Inspection: normal respiratory effort Neuro General: patient oriented x3 and gait normal Cranial nerves: Yes Equal, round and reactive pupils present Psych Affect: normal affect Results AMB Hemoglobin A1c AMB Hemoglobin A1c 6.0 % Last Edit by Aleta Pulido CMA on 08/17/23 08:37 Results Reviewed Results Reviewed: Laboratory Last Values Hgb A1c (Clinic) 6.0 % (4.0-6.0) 08/17/23 08:36 Assessment and Plan Assessment & Plan (1) Diabetes type 2, controlled: Code(s): E11.9 - Type 2 diabetes mellitus without complications Plan: He?is?6.0%.??Good?control.??Goal?is?less?than?7.0% Continue?current?medication Encouraged?diabetic?diet?and?exercise?as?well?as?weight?loss Diabetic eye exam in November showed no retinopathy Encouraged good foot care (2) Back pain: Code(s): M54.9 - Dorsalgia, unspecified Plan: Had?some?improvement?with?transforaminal?epidural?injections [facility]?has?referred?him?to??[place], neurosurgery Stable Follow-up?with?[facility]?and?neurosurgery (3) Epididymal cyst: Code(s): N50.3 - Cyst of epididymis Plan: Patient?notes?he?still?gets?some?pain?from?testicular?cyst. Has?a?follow-up?ultrasound?scheduled?and?will?follow-up?with?urology?after?that. Advised?good?support (4) Essential hypertension: Code(s): I10 - Essential (primary) hypertension Plan: Blood?pressure?is?well?controlled.??Goal?is?less?than?140/90 Continue?current?medication Orders: Orders AMB Hemoglobin A1c Today Z13.9 - Encounter for screening, unspecified Coding Level of Care Code Est Pt Level 4 (15498) Diagnoses Diabetes type 2, controlled E11.9 Back pain M54.9 Epididymal cyst N50.3 Essential hypertension I10 Additional Codes AGUTSINA-7 Assessment Billing - AGUSTINA-7 Assessment Tool: AGUSTINA-7 Assessment 98200 ([id number])
[2023-08-17 08:26] VITALS: BP 126/68; PULSE 75; RESP 13; O2SAT 96; BMI 38.5
== END 2023-08-17 08:57 | disposition home or self-care (01) ==
PROVIDERS: PCP Family Medicine; Visit Provider Family Medicine
DX: E11.9 Type 2 diabetes mellitus without complications (principal); M54.9 Dorsalgia, unspecified; N50.3 Cyst of epididymis; I10 Essential (primary) hypertension
CPT/HCPCS: 83036; 99214

== ENCOUNTER 2023-12-21 08:15 | Outpatient (AMB) | payer OTHER, SELFPAY ==
[2023-12-21 08:19] VITALS: BP 126/80; PULSE 74; RESP 13; TEMP 36.4; O2SAT 97; BMI 40.0
--- NOTE | 2023-12-21 08:19 | MHC.PC.OV ---
Vital Signs 12/21/23 08:19 Height 6 ft Weight 295 lb BMI 40.0 BP 126/80 Blood Pressure Location Rt brachial Position Sitting Respiration 13 Pulse 74 Pulse Source Pulse Oximeter Temp 97.6 F Temp Source Temporal Artery Scan Pulse Oximetry (%) 97 Oxygen Delivery Method Room Air Intake Visit Reasons: f/u diabetes and hypertension Intake Note: Patient didnt have any concerns. Government Instructor Required: No Accompanied by: Self / Same As Patient Allergies No Known Allergies [No Known Allergies*] Allergy (Verified 12/21/23 08:26) Medication List - Last Reconciled 12/21/23 by Mateus Frye MD atorvastatin 20 mg PO DAILY dorzolamide-timolol 22.3-6.8 mg/mL 1 drp ophthalmic (eye) BID lisinopril 40 mg PO DAILY metformin 500 mg PO DAILY Tobacco use date assessed: 12/21/23 Dental Screening Dental Screen Date: 12/21/23 Did you have a dental visit in the last 12 months?: Yes Did you have a dental problem in the last 6 months where you did not have access to dental care?: No Was dental information given to patient?: Patient has dentist HPI f/u diabetes and hypertension HPI Details Patient?presents?to?follow-up?diabetes?and?hypertension He?is?on?lisinopril?for?blood?pressure?and?his?BP?today?was?126/80 No?problems?with?lisinopril He?is?on?metformin?500?mg?daily?for?diabetes?and?A1c?today?was?6.2%.??Prior?A1c?was?6.0% Tolerating?metformin?with?no?problem He?has?an?appointment?for?his?next?diabetic?eye?exam?next?month [facility] Medical History No pertinent past medical history Surgical History No pertinent past surgical history Social History Household Members: Spouse and Children Housing: House Alcohol intake: current Alcohol intake frequency: holidays/special occasions only Patient Tobacco Use Status: Current everyday Tobacco user Tobacco use type: Smokeless Tobacco Years Smoked: Not smoking since June of 2022, Uses pouch. e-Cigarette/Vaping Use: Never Used Substance Use Type: Marijuana service: No Current occupational status: employed Current occupation: [employer] Current occupational exposures/hazards: No Sexual orientation: Unable to collect Gender identity: Unable to collect Cognitive needs: No Hearing needs: No Vision needs: Yes (wears glasses) Questionnaire Thrive Questionnaire Date Thrive assessed: 08/17/23 AGUSTINA-7 AMB Questionnaire AGUSTINA-7 Date AGUSTINA - 7 assessed: 08/17/23 Source: Developed by Drs. Maikol Chaudhary, Sherin Barragan, Michael Mitchell and colleagues, with an educational rebecca from [email or web address]. Review of Systems Const Denies chills, Denies fatigue, Denies fever(s), Denies headache(s) and Denies weakness ENT Denies dizziness and Denies headache(s) Card Denies chest pain, Denies lightheadedness, Denies dyspnea and Denies other (Palpitations) Resp Denies cough, Denies dyspnea, Denies wheezing and Denies other ( shortness of breath) Musc Denies numbness and Denies tingling Neuro Denies dizziness, Denies headache(s), Denies numbness, Denies tingling, Denies paresthesias and Denies weakness Psych Denies anxiety and Denies depression Endo Denies fatigue Aller/Immun Denies wheezing Physical exam (Primary Care) Vital Signs: Last Vital Signs Temp 97.6 F 12/21/23 08:19 Pulse 74 12/21/23 08:19 Resp 13 12/21/23 08:19 BP 126/80 12/21/23 08:19 Pulse Ox 97 12/21/23 08:19 Oxygen Delivery Method Room Air 12/21/23 08:19 BMI result Body Mass Index 40.0 Tobacco/Smoking Status: Tobacco use Status Tobacco use date assessed 12/21/23 12/21/23 08:27 Patient Tobacco Use Status Current everyday Tobacco 12/21/23 08:24 Tobacco use type Smokeless Tobacco 12/21/23 08:24 e-Cigarette/Vaping Use Never Used 12/21/23 08:24 Thrive Assessment: Date of Thrive Assessment Date Thrive assessed 08/17/23 12/21/23 08:24 Const General: no acute distress and well developed Nutritional Appearance: well nourished and obese morbidly obese Orientation/consciousness: patient oriented x3 [facility] Head: Yes normocephalic and Yes atraumatic Eyes General: appearance normal, both eyes and all related structures Pupils: Equal, round and reactive pupils present EOM: EOMs intact bilaterally Resp Effort & Inspection: normal respiratory effort Auscultation: clear to auscultation bilaterally Cardio Rate: regular rate Rhythm: regular rhythm Heart sounds: S1 normal heart sound present, S2 normal heart sound present, no gallops, no murmurs and no rubs Neuro General: patient oriented x3 and gait normal Cranial nerves: Yes Equal, round and reactive pupils present Psych Affect: normal affect Results AMB Hemoglobin A1c AMB Hemoglobin A1c 6.2 % Last Edit by CATHERINE Mathew on 12/21/23 08:35 Results Reviewed Results Reviewed: Laboratory Last Values Hgb A1c (Clinic) 6.2 % (4.0-6.0) H 12/21/23 08:34 Assessment and Plan Assessment & Plan (1) Diabetes type 2, controlled: Code(s): E11.9 - Type 2 diabetes mellitus without complications Plan: A1c?6.2%?which?is?up?from?6.0%?but?still?well?controlled.??Goal?is?less?than?7.0% Continue?current?medication?regimen?and?I?encouraged?a?diabetic?diet?low?in?sugars?and?starches. Encouraged?exercise Has?next?diabetic?eye?exam?in?a?month (2) Essential hypertension: Code(s): I10 - Essential (primary) hypertension Plan: Blood?pressure?is?well?controlled.??Goal?is?less?than?140/90 Continue?current?medication Plan Due?for?complete?physical?at?next?exam?in?early?April Orders: Orders Comprehensive [place]. Panel Fast Today Z00.00 - Encounter for general adult medical examination without abnormal findings Microalbumin, Random (w Creat) Today I10 - Essential (primary) hypertension UA and rflx microscopic Today Z00.00 - Encounter for general adult medical examination without abnormal findings AMB Hemoglobin A1c Today E11.9 - Type 2 diabetes mellitus without complications Lipid Panel Today Z00.00 - Encounter for general adult medical examination without abnormal findings Prostate Specific Antigen Scr Today Z12.5 - Encounter for screening for malignant neoplasm of prostate TSH reflex Free T4 Today Z00.00 - Encounter for general adult medical examination without abnormal findings Coding Level of Care Code Est Pt Level 3 (57393) Diagnoses Diabetes type 2, controlled E11.9 Essential hypertension I10
== END 2023-12-21 08:53 | disposition home or self-care (01) ==
PROVIDERS: PCP Family Medicine; Visit Provider Family Medicine
DX: E11.9 Type 2 diabetes mellitus without complications (principal); I10 Essential (primary) hypertension
CPT/HCPCS: 83036; 99213

== ENCOUNTER 2024-02-05 15:41 | Outpatient (REF) | payer OTHER, SELFPAY ==
--- NOTE | ~2024-02-05 | US_ITS ---
EXAMINATION: US SCROTUM CLINICAL INFORMATION: Cyst of epididymitis. COMPARISON: None available. TECHNIQUE: A sonogram of the scrotum was performed assessing mckee-scale appearance and color Doppler flow. Spectral Doppler analysis of the arterial and venous flow were performed in the testes bilaterally. FINDINGS: RIGHT: Right testicle measures 5.1 x 2.3 x 3.3 cm, volume 20.2 mL. No focal testicular parenchymal lesions are visualized. Spectral Doppler analysis of the arterial and venous flow is normal in the right testis. 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 Right epididymal head is normal in size.. No right hydrocele or varicocele is seen. Right epididymal Doppler flow is normal. LEFT: Left testicle measures 5.7 x 2.5 x 4.1 cm, volume 31.6 mL. No focal testicular parenchymal lesions are visualized. Spectral Doppler analysis of the arterial and venous flow is normal in the left testis. Tubular ectasia of the rete testis measuring approximately 4.4 x 2.2 x 3.5 cm. Previously measured approximately 4.4 x 2.1 x 3.2 cm. 4.2 x 2.9 x 4.7 cm cyst in the region of the left epididymal head, previously 4.4 x 3.7 x 2.7 cm., possibly representing an epididymal cyst versus spermatocele. No left varicocele is seen. Left epididymal Doppler flow is normal. US/US scrotum IMPRESSION: 1. 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 Left testicle remains larger in size compared with the right, possibly do to the aforementioned findings. 2. A 4.2 x 2.9 x 4.7 cm cyst in the region of the left epididymal head, previously 4.4 x 3.7 x 2.7 cm, possibly representing an epididymal cyst versus spermatocele.
== END 2024-02-05 15:42 | disposition home or self-care (01) ==
LOC: HO.US 15:41
PROVIDERS: PCP Family Medicine; Visit Provider Urology
DX: N50.3 Cyst of epididymis (principal)
CPT/HCPCS: 76870

== ENCOUNTER 2024-03-03 08:17 | Outpatient (AMB) | payer OTHER, SELFPAY ==
--- NOTE | 2024-03-03 08:21 | A.OFFVIS_ITS ---
Intake Visit Reasons: 9m/US Intake Note: Patient is Present for Follow Up Ultrasound Urology Medication: None Antibiotic Allergies: None Blood Thinners: None Patient states that his symptoms are the same Director Medical Affairs Required: No Allergies No Known Allergies [No Known Allergies*] Allergy (Verified 03/03/24 08:46) HPI Comments Details: 03/03/24--Jose Rafael is a 53-year-old male who presents today for follow up of epididymal left epididymal cyst versus spermatocele. I have reviewed follow-up scrotal ultrasound 02/05/2024. There is no significant change in the left epididymal cyst/spermatocele. The patient states he may get occasional discomfort in the scrotum he denies pain. I have discussed conservative management at this time. No indication for repeat ultrasound at this time. Follow-up in 1 year Review of chart: 06/04/2023? He is present today for an evaluation of scrotal swelling. He was referred to urology office by his PCP. He states he noted in November that his scrotum was larger than usual, denies testicular pain or changes in urination. 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 4.4 x 3.7 x 2.7 cm left epididymal cyst versus spermatocele. No testicular masses, normal flow. Discussed exam and US is consistent with benign epididymal cyst, will monitor to see if it gets larger or is symptomatic/causes pain. Evaluation today?UA? leukocytes: negative; blood: negative. Follow up in 9 months to re-evaluate and US of the scrotum at that time. [facility] Medical History No pertinent past medical history Surgical History No pertinent past surgical history Social History Household Members: Spouse and Children Housing: House Alcohol intake: current Alcohol intake frequency: holidays/special occasions only Patient Tobacco Use Status: Current everyday Tobacco user Tobacco use type: Smokeless Tobacco Years Smoked: Not smoking since June of 2022, Uses pouch. e-Cigarette/Vaping Use: Never Used Substance Use Type: Marijuana service: No Current occupational status: employed Current occupation: [employer] Current occupational exposures/hazards: No Sexual orientation: Unable to collect Gender identity: Unable to collect Cognitive needs: No Hearing needs: No Vision needs: Yes (wears glasses) Review of Systems Const All systems reviewed & are unremarkable except as noted in HPI and below Reports no additional complaints Eyes Reports no additional complaints ENT Reports no additional complaints Card Reports no additional complaints Resp Reports no additional complaints GI Reports no additional complaints Reports as per HPI Musc Reports no additional complaints Skin/Breast Reports system reviewed and no additional complaints, except as documented Neuro Reports no additional complaints Psych Reports no additional complaints Endo Reports no additional complaints Bakari/Lymph Reports no additional complaints Aller/Immun Reports no additional complaints Results AMB Urinalysis, Automated UA Leukoctes 0 Randy/uL Last Edit by ISMAEL Bull on 03/03/24 08:53 UA Nitrite Negative Last Edit by Bisi Ventura [facility] on 03/03/24 08:53 UA Urobilinogen 0.2 mg/dL Last Edit by ISMAEL Bull on 03/03/24 08:5 3 UA Protein 0 mg/dL Last Edit by Bisi Ventura [facility] on 03/03/24 08:53 UA pH 5.0 Last Edit by ISMAEL Bull on 03/03/24 08:53 UA Blood 0 Terrance/uL Last Edit by Bisi Ventura A on 03/03/24 08:53 UA Specific [place] 1.020 Last Edit by ISMAEL Bull on 03/03/24 08: 53 UA Ketone Negative Last Edit by Bisi Ventura Luis Manuel on 03/03/24 08:53 UA Bilirubin 0 mg/dL Last Edit by Bisi Ventura [facility] on 03/03/24 08:53 UA Glucose 0 mg/dL Last Edit by Bisi Ventura Luis Manuel on 03/03/24 08:53 Results Reviewed Results Reviewed: Laboratory Last Values Urine pH (Auto) 5.0 03/03/24 08:50 Specific [place] (Auto) 1.020 03/03/24 08:50 Urine Protein (Auto) 0 mg/dL 03/03/24 08:50 Glucose (UA)(Auto) 0 mg/dL 03/03/24 08:50 Urine Ketones (Auto) Negative 03/03/24 08:50 Urine Blood (Auto) 0 Terrance/uL 03/03/24 08:50 Urine Nitrite (Auto) Negative 03/03/24 08:50 Urine Bilirubin (Auto) 0 mg/dL 03/03/24 08:50 Urine Urobilinogen (Auto) 0.2 mg/dL 03/03/24 08:50 Leukocyte Esterase (Auto) 0 Randy/uL 03/03/24 08:50 Date of Service: 02/05/24 US SCROTUM CLINICAL INFORMATION: Cyst of epididymitis. COMPARISON: None available. TECHNIQUE: A sonogram of the scrotum was performed assessing mckee-scale appearance and color Doppler flow. Spectral Doppler analysis of the arterial and venous flow were performed in the testes bilaterally. FINDINGS: RIGHT: Right testicle measures 5.1 x 2.3 x 3.3 cm, volume 20.2 mL. No focal testicular parenchymal lesions are visualized. Spectral Doppler analysis of the arterial and venous flow is normal in the right testis. 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 Right epididymal head is normal in size.. No right hydrocele or varicocele is seen. Right epididymal Doppler flow is normal. LEFT: Left testicle measures 5.7 x 2.5 x 4.1 cm, volume 31.6 mL. No focal testicular parenchymal lesions are visualized. Spectral Doppler analysis of the arterial and venous flow is normal in the left testis. Tubular ectasia of the rete testis measuring approximately 4.4 x 2.2 x 3.5 cm. Previously measured approximately 4.4 x 2.1 x 3.2 cm. 4.2 x 2.9 x 4.7 cm cyst in the region of the left epididymal head, previously 4.4 x 3.7 x 2.7 cm., possibly representing an epididymal cyst versus spermatocele. No left varicocele is seen. Left epididymal Doppler flow is normal. IMPRESSION: 1. 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 Left testicle remains larger in size compared with the right, possibly do to the aforementioned findings. 2. A 4.2 x 2.9 x 4.7 cm cyst in the region of the left epididymal head, previously 4.4 x 3.7 x 2.7 cm, possibly representing an epididymal cyst versus spermatocele. Date of Service: 04/11/23 EXAMINATION: US SCROTUM CLINICAL INFORMATION:? Testicular lump. COMPARISON:? None available. FINDINGS: RIGHT: Right testicle measures 5.6 x 2.3 x 3.2 cm, volume 22 mL. Spectral Doppler analysis of the arterial and venous flow is normal in the right testis. Right epididymal head is normal in size. No right varicocele is seen. Mild tubular ectasia of the rete testes. Right epididymal Doppler flow is normal. LEFT: Left testicle measures 5.5 x 2.7 x 4.0 cm, volume 31 mL. No focal testicular parenchymal lesions are visualized. Spectral Doppler analysis of the arterial and venous flow is normal in the left testis. Left epididymal head is normal in size. No left varicocele is seen. Moderate to severe tubular ectasia of the rete testes. 4.4 x 3.7 x 2.7 cm left epididymal cyst versus spermatocele. Left epididymal Doppler flow is normal. Nonspecific, right anterior scrotal wall, 0.5 x 0.5 x 0.4 cm, poorly defined, ovoid, hypoechoic, hypervascular structure located less than 1 mm below the skin surface. 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 4.4 x 3.7 x 2.7 cm left epididymal cyst versus spermatocele. Nonspecific, right anterior scrotal wall, 0.5 x 0.5 x 0.4 cm, poorly defined, ovoid, hypoechoic, hypervascular structure located less than 1 mm below the skin surface. Recommend clinical correlation. Differential diagnosis includes, but is not limited to, sebaceous cyst, possibly inflamed. Assessment & Plan Assessment & Plan (1) Epididymal cyst: Code(s): N50.3 - Cyst of epididymis Category: Medical (2) Scrotal swelling: Code(s): N50.89 - Other specified disorders of the male genital organs Category: Medical Plan Patient asymptomatic. Conservative management. Follow-up in 1 year evaluate for any new symptoms. Orders: Orders AMB Urinalysis Automated Today Z13.9 - Encounter for screening, unspecified Patient Instructions: The patient had an opportunity to ask questions regarding treatment plan. The patient expressed understanding and agreement with the above treatment plan. The patient is aware they should contact our office by phone for worsening of their current condition or the appearance of new symptoms. Compliance is encouraged with any medications and followup testing that is ordered. It is a privilege to be allowed the opportunity to participate in the urologic care of your patient. If you have any questions or concerns regarding treatment for the above conditions please do not hesitate to contact me. The office telephone contact is [phone]. This note is constructed in part using voice recognition software. While every effort has been made to ensure accuracy spot checker errors may have been included. Yours sincerely, Shahriar Holland MD Coding Level of Care Code Est Pt Level 3 (65635) Diagnoses Epididymal cyst N50.3 Scrotal swelling N50.89
== END 2024-03-03 09:03 | disposition home or self-care (01) ==
PROVIDERS: PCP Family Medicine; Visit Provider Urology
DX: N50.3 Cyst of epididymis (principal); N50.89 Other specified disorders of the male genital organs; Z13.9 Encounter for screening, unspecified
CPT/HCPCS: 99213

== ENCOUNTER → 2024-03-03 08:17 | Outpatient (BNVA) | payer OTHER, SELFPAY | PROVIDERS: PCP Family Medicine; Visit Provider Urology | DX: N50.3 Cyst of epididymis (principal); N50.89 Other specified disorders of the male genital organs | CPT/HCPCS: 81003 ==

== ENCOUNTER 2024-04-15 09:08 | Outpatient (REF) | payer OTHER, SELFPAY ==
[2024-04-15 12:00] LABS: Prostate Specific Antigen Scr 0.28 ng/mL (<0.05-4.0)
[2024-04-15 12:02] LABS: Alanine Aminotransferase 30 U/L (0-40); Albumin Level 4.6 g/dL (3.5-5.0); Alkaline Phosphatase 67 U/L (39-117); Anion Gap 14 (12-20); Aspartate Amino Transferase 21 U/L (5-37); Bilirubin Total 0.6 mg/dL (0.0-1.0); Blood Urea Nitrogen 13 mg/dL (9-16); Carbon Dioxide 26 mmol/L (22-29); Chloride 105 mmol/L (96-108); Cholesterol 142 mg/dL (<200); Estimated Glomerular Filt Rate > 60; Glucose Fasting 119 mg/dL (60-99); HDL Cholesterol 42 mg/dL (>40); LDL Cholesterol Calculated 77 mg/dL (<100); Potassium 4.3 mmol/L (3.3-5.1); Sodium 141 mmol/L (135-145); TSH reflex Free T4 1.23 uIU/mL (0.32-4.0); Total Protein 7.3 g/dL (6.5-8.0); Triglycerides 117 mg/dL (<150)
[2024-04-15 14:11] LABS: Appearance Urine Turbid; Color Urine Dark Yellow; Glucose Urine UA Negative (Negative); Leukocyte Esterase Urine Negative (Negative); Nitrite Urine Negative (Negative); PH 5.5 (5.0-9.0); Specific Gravity - Urine 1.025 (1.005-1.025); Urine Blood Negative (Negative); Urine Ketones Negative (Negative); Urine Protein Trace mg/dL (Neg-Trace)
[2024-04-15 14:37] LABS: Creatinine Urine 297.56 mg/dL; Microalbum/Creatinine Ratio Ur 18.4 ug/mg cr (<30)
== END 2024-04-15 09:09 | disposition home or self-care (01) ==
LOC: HO.WFDLDS 09:08
PROVIDERS: Visit Provider Family Medicine
DX: Z00.00 Encounter for general adult medical examination without abnormal findings (principal); I10 Essential (primary) hypertension; Z12.5 Encounter for screening for malignant neoplasm of prostate
CPT/HCPCS: 36415; 80053; 80061; 81003; 82043; 82570; 84153; 84443

== ENCOUNTER 2024-04-21 08:40 | Outpatient (AMB) | payer OTHER, SELFPAY ==
--- NOTE | 2024-04-21 08:59 | MHC.PC.OV ---
Vital Signs 04/21/24 09:07 Height 5 ft 6 in Weight 299 lb 8 oz BMI 48.3 BP 116/68 Blood Pressure Location Lt brachial Position Sitting Respiration 18 Pulse 75 Pulse Source Pulse Oximeter Temp 98 F Temp Source Tympanic Pulse Oximetry (%) 98 Oxygen Delivery Method Room Air Intake Visit Reasons: CPE with labs and health maintenance Intake Note: CPE Allergies No Known Allergies [No Known Allergies*] Allergy (Verified 04/21/24 09:01) Medication List - Last Reconciled 04/21/24 by Mateus Frye MD atorvastatin 20 mg PO DAILY dorzolamide-timolol 22.3-6.8 mg/mL 1 drp ophthalmic (eye) BID lisinopril 40 mg PO DAILY metformin 500 mg PO DAILY Tobacco use date assessed: 12/21/23 Dental Screening Dental Screen Date: 04/21/24 Did you have a dental visit in the last 12 months?: Yes Did you have a dental problem in the last 6 months where you did not have access to dental care?: No Was dental information given to patient?: Patient has dentist HPI CPE with labs and health maintenance HPI Details 53 y/o male presents for a CPE with f/u labs and health maintenance. Labs were drawn 04/15/24. Reviewed labs with pt. Triglycerides 117. TC 142. LDL 77. HDL 42. He is on artovastatin 20mg daily. PSA 0.28. Blood pressure today 116/68. He is on lisinopril 40mg daily. Last A1c 12/21/23 6.2%. A1c today 04/21/24 is 6.4%.He is on metformin 500mg daily. Has complaints of chronic constipation. HPI Comments History of Present Illness Details Documentation assistance for Mateus Frye MD, was provided by Heber Mcfarlane,? Botanical Technical Officer on 04/21/2024 at 9:32 AM LUIS. I, Dr. Frye, have read, observed, and verified documentation. [facility] [place] Medical History No pertinent past medical history Surgical History No pertinent past surgical history Social History (Updated 04/21/24 @ 09:02 by Apple Suresh) Household Members: Spouse and Children Housing: House Alcohol intake: current Alcohol intake frequency: holidays/special occasions only Patient Tobacco Use Status: Current everyday Tobacco user Tobacco use type: Smokeless Tobacco Years Smoked: Not smoking since June of 2022, Uses pouch. e-Cigarette/Vaping Use: Never Used Substance Use Type: Marijuana service: No Current occupational status: employed Current occupation: [employer] Current occupational exposures/hazards: No Sexual orientation: Unable to collect Gender identity: Unable to collect Cognitive needs: No Hearing needs: No Vision needs: Yes (wears glasses) Questionnaire PHQ-9 Over the last 2 weeks, how often have you been bothered by any of the following problems? 1. Little interest or pleasure in doing things: not at all 2. Feeling down, depressed, or hopeless: not at all 3. Trouble falling or staying asleep, or sleeping too much: not at all 4. Feeling tired or having little energy: not at all 5. Poor appetite or overeating: not at all 6. Feeling bad about yourself - or that you are a failure or have let yourself or your family down: not at all 7. Trouble concentrating on things, such as reading the newspaper or watching television: not at all 8. Moving or speaking so slowly that other people could have noticed. Or the opposite - being so fidgety or restless that you have been moving around a lot more than usual: not at all 9. Thoughts that you would be better off or of hurting yourself in some way: not at all Total score: 0 Depression Screening Interpretation: Negative Depression Screening Done: Yes 37809 - PHQ-9 Billing: Yes Source: Developed by Drs. Maikol Chaudhary, Sherin Barragan, Michael Mitchell and colleagues, with an educational rebecca from [employer]. Thrive Questionnaire Date Thrive assessed: 04/21/24 I am a: Patient What is your living situation today?: I have a steady place to live Within the past 12 months, did the food you bought not last and you didn't have the money to get more?: Never true Within the past 12 months, did you worry whether your food would run out before you got money to buy more?: Never true Do you have trouble paying for medicines?: No Do you have trouble getting transportation to medical appointments?: No Do you have trouble paying your heating and electricity bill?: No Do you have trouble taking care of your child, family member or friend?: No Do you have trouble with day-to-day activities such as bathing, preparing meals, shopping, managing finances, etc.?: No Are you currently unemployed and looking for a job?: No Are you interested in more education?: No Please select the resources that you would like help with: None Currently or been in a relationship where the following occur: No concerns reported THRIVE Score: 0 AUDIT C Alcohol Use Questionnaire (AUDIT-C) 1. How often do you have a drink containing alcohol?: 2-4 times a month 2. How many drinks containing alcohol do you have on a typical day when you are drinking?: 3 or 4 3. How often do you have six or more drinks on one occasion?: Never Total Score: 3 Score Reviewed/Action Taken: Yes AGUSTINA-7 AMB Questionnaire AGUSTINA-7 Date AGUSTINA - 7 assessed: 04/21/24 Feeling nervous, anxious, or on edge: 0 = Not at all Not being able to stop or control worryin = Not at all Worrying too much about different things: 0 = Not at all Trouble relaxin = Not at all Being so restless that it is hard to sit still: 0 = Not at all Becoming easily annoyed or irritable: 0 = Not at all Feeling afraid as if something awful might happen: 0 = Not at all Total AGUSTINA-7 score (0-4 normal; 5-9 mild; 10-14 moderate; 15-21 severe): 0 Source: Developed by Drs. Maikol Chaudhary, Sherin Barragan, Michael Mitchell and colleagues, with an educational rebecca from [employer]. AGUSTINA-7 Assessment Billing AGUSTINA-7 Assessment Tool: AGUSTINA-7 Assessment [id number] Review of Systems Const Denies chills, Denies fatigue, Denies fever(s), Denies headache(s) and Denies weakness Eyes Denies change in vision ENT Denies dizziness, Denies headache(s), Denies hearing loss, Denies nasal congestion, Denies sinus pain, Denies sinus pressure and Denies sore throat Card Denies chest pain, Denies lightheadedness, Denies dyspnea and Denies other (palpitations) Resp Denies cough, Denies dyspnea and Denies wheezing GI Denies abdominal pain, Denies melena, Denies hematochezia, Denies change in bowel habits, Reports constipation, Denies dyspepsia and Denies nausea Denies hematuria and Denies dysuria Musc Denies abnormal gait, Denies myalgias, Denies arthralgias, Denies numbness and Denies tingling Skin/Breast Denies rash, Denies unusual bruising and Denies wounds Neuro Denies abnormal gait, Denies dizziness, Denies headache(s), Denies memory loss, Denies numbness, Denies Sensory deficit (Neuro), Denies tingling and Denies weakness Psych Denies anxiety, Denies depression and Denies memory loss Endo Denies cold intolerance, Denies fatigue, Denies heat intolerance, Denies polydipsia and Denies polyuria Bakari/Lymph Denies easy bleeding and Denies easy bruising Aller/Immun Denies wheezing Physical exam (Primary Care) Vital Signs: Last Vital Signs Temp 98 F 04/21/24 09:07 Pulse 75 04/21/24 09:07 Resp 18 04/21/24 09:07 BP 116/68 04/21/24 09:07 Pulse Ox 98 04/21/24 09:07 Oxygen Delivery Method Room Air 04/21/24 09:07 BMI result Body Mass Index 48.3 Tobacco/Smoking Status: Tobacco use Status Tobacco use date assessed 12/21/23 04/21/24 09:01 Patient Tobacco Use Status Current everyday Tobacco 04/21/24 09:02 Tobacco use type Smokeless Tobacco 04/21/24 09:02 e-Cigarette/Vaping Use Never Used 04/21/24 09:02 PHQ-9: PHQ-9 Score PHQ-9: Total score 0 04/21/24 09:10 Depression Screening Interpretation: Negative Thrive Assessment: Date of Thrive Assessment Date Thrive assessed 04/21/24 04/21/24 09:06 Currently or been in a relationship where the following occur: No concerns reported Const General: no acute distress, well developed, alert and awake Nutritional Appearance: well nourished Orientation/consciousness: patient oriented x3 HENMT Head: Yes normocephalic and Yes atraumatic Ears: hearing grossly normal bilaterally and TM's normal bilaterally General nose exam: Normal external nose present and Normal nares present Mouth: Normal oral and palatal mucosa present and moist mucous membranes Teeth and gingiva: dentition normal Throat: Yes posterior oropharynx normal Eyes General: appearance normal, both eyes and all related structures Pupils: Equal, round and reactive pupils present and Pupil accommodation reflex normal EOM: EOMs intact bilaterally Neck Neck: Yes normal visual inspection, Yes no lymphadenopathy and Yes trachea midline Thyroid: Thyroid normal Carotids: no bruits Lymphatic: no lymphadenopathy noted Chest Chest palpation & inspection: normal inspection of the chest Resp Effort & Inspection: normal respiratory effort Auscultation: clear to auscultation bilaterally Cardio Rate: regular rate Rhythm: regular rhythm Heart sounds: S1 normal heart sound present, S2 normal heart sound present, no gallops, no murmurs and no rubs Bruits: no abdominal aortic bruits and no carotid bruits GI Palpation (GI): No Abdominal aortic bruit present, Soft to palpation, nontender, No hepatosplenomegaly present and No Rebound tenderness present Auscultation: normal bowel sounds General: Yes no CVA tenderness Back/Spine/Pelvis Back: no CVA tenderness Cervical Spine: cervical ROM normal and No Cervical spine tenderness Thoracic/Lumbar Spine: thoraco-lumbar ROM normal, No pain with thoraco-lumbar ROM, No thoracic spinal tenderness and No lumbar spinal tenderness Skin Lesions: no lesions Rashes: no rashes Trauma: no lacerations or abrasions Wounds: no wounds Nails: normal Neuro General: patient oriented x3 Cranial nerves: Yes Equal, round and reactive pupils present Cognition (Neuro): normal cognition Gait exam (Neuro): Normal gait present Motor exam (neuro): 5/5 motor strength present throughout Sensory Exam: No Sensory deficit (Neuro) Deep tendon reflexes (DTR's): Right patellar reflex intensity grade: 2+ and Left patellar reflex intensity grade: 2+ Extrem General: Yes normal to inspection and No edema Psych Appearance: grossly normal Affect: normal affect Attitude: cooperative Thought process: Normal thought process present Assessment and Plan Assessment & Plan (1) Adult general medical exam: Code(s): Z00.00 - Encounter for general adult medical examination without abnormal findings Plan: 53-year-old?male?presents?for?complete?physical?exam Patient?is?obese?but?otherwise?exam?was?within?normal?range Encouraged?healthy?diet?with?active?lifestyle?and?plenty?of?exercise (2) Diabetes type 2, controlled: Code(s): E11.9 - Type 2 diabetes mellitus without complications Plan: A1c?6.4%?is?good?control.??Goal?is?less?than?7.0% Continue?current?medication Encouraged?diet?low?in?sugars?and?starches Encouraged?exercise?and?weight?loss (3) Hyperlipidemia: Code(s): E78.5 - Hyperlipidemia, unspecified Plan: Lipids?are?controlled?on?atorvastatin Continue?current?medication (4) Constipation: Code(s): K59.00 - Constipation, unspecified Plan: Increase?hydration Can?consider?a?soluble?fiber?supplement (5) Essential hypertension: Code(s): I10 - Essential (primary) hypertension Plan: Blood?pressure?is?well?controlled.??Goal?is?less?than?140/90 Continue?current?medication (6) Screening for colon cancer: Code(s): Z12.11 - Encounter for screening for malignant neoplasm of colon Plan: Patient?says?his?last?colonoscopy?was?in?2020?and?that?he?was?told?to?follow-up?in?7?years. Will?request?report (7) Screening for prostate cancer: Code(s): Z12.5 - Encounter for screening for malignant neoplasm of prostate Plan: PSA?was?in?normal?range Will?continue?annual?screening Coding Level of Care Code Est Pt Level 3 (15405) Est Pt Prev Care 40-64y(43495) Diagnoses Adult general medical exam Z00.00 Diabetes type 2, controlled E11.9 Hyperlipidemia E78.5 Constipation K59.00 Essential hypertension I10 Screening for colon cancer Z12.11 Screening for prostate cancer Z12.5 Additional Codes AGUSTINA-7 Assessment Billing - AGUSTINA-7 Assessment Tool: AGUSTINA-7 Assessment [id number] ([id number])
[2024-04-21 09:07] VITALS: BP 116/68; PULSE 75; RESP 18; TEMP 36.6; O2SAT 98; BMI 48.3
== END 2024-04-21 09:32 | disposition home or self-care (01) ==
PROVIDERS: PCP Family Medicine; Visit Provider Family Medicine
DX: Z00.00 Encounter for general adult medical examination without abnormal findings (principal); E11.9 Type 2 diabetes mellitus without complications; E78.5 Hyperlipidemia, unspecified; K59.00 Constipation, unspecified; I10 Essential (primary) hypertension; Z12.11 Encounter for screening for malignant neoplasm of colon; Z12.5 Encounter for screening for malignant neoplasm of prostate
CPT/HCPCS: 99396

== ENCOUNTER 2024-09-25 08:31 | Outpatient (AMB) | payer OTHER, SELFPAY ==
--- NOTE | 2024-09-25 08:45 | MHC.PC.OV ---
Vital Signs 09/25/24 08:52 Height 5 ft 6 in Weight 307 lb 2 oz BMI 49.6 BP 110/70 Blood Pressure Location Lt brachial Position Sitting Respiration 14 Pulse 74 Pulse Source Pulse Oximeter Pulse Oximetry (%) 95 Oxygen Delivery Method Room Air Intake Visit Reasons: f/u diabetes, htn Intake Note: f/u DM and HTN Allergies No Known Allergies [No Known Allergies*] Allergy (Verified 09/25/24 08:51) Medication List - Last Reconciled 09/25/24 by Mateus Frye MD atorvastatin 20 mg PO DAILY dorzolamide-timolol 22.3-6.8 mg/mL 1 drp ophthalmic (eye) BID lisinopril 40 mg PO DAILY metformin 500 mg PO DAILY Tobacco use date assessed: 12/21/23 Dental Screening Dental Screen Date: 04/21/24 HPI f/u diabetes, htn HPI Details 54 y/o male presents to f/u diabetes, HTN. Last A1c 04/21/24 6.4%. A1c today 09/25/24 6.4%. He is on metformin 500mg daily. Blood pressure today 110/70, 74p. He is on lisinopril 40mg daily. He reports back pain. He notes he works a job that's around 50-60% physical. He describes his pain level around 9. HPI Comments History of Present Illness Details Documentation assistance for Mateus Frye MD, was provided by Heber Mcfarlane,? Restaurant District Manager on 09/25/2024 at 9:06 AM EST. I, Dr. Frye, have read, observed, and verified documentation. [facility] Medical History No pertinent past medical history Surgical History No pertinent past surgical history Social History (Updated 04/21/24 @ 09:02 by Apple Suresh [facility]) Household Members: Spouse and Children Housing: House Alcohol intake: current Alcohol intake frequency: holidays/special occasions only Patient Tobacco Use Status: Current everyday Tobacco user Tobacco use type: Smokeless Tobacco Years Smoked: Not smoking since June of 2022, Uses pouch. e-Cigarette/Vaping Use: Never Used Substance Use Type: Marijuana service: No Current occupational status: employed Current occupation: [employer] Current occupational exposures/hazards: No Sexual orientation: Unable to collect Gender identity: Unable to collect Cognitive needs: No Hearing needs: No Vision needs: Yes (wears glasses) Questionnaire PHQ-9 Over the last 2 weeks, how often have you been bothered by any of the following problems? 1. Little interest or pleasure in doing things: not at all 2. Feeling down, depressed, or hopeless: not at all 3. Trouble falling or staying asleep, or sleeping too much: not at all 4. Feeling tired or having little energy: not at all 5. Poor appetite or overeating: not at all 6. Feeling bad about yourself - or that you are a failure or have let yourself or your family down: not at all 7. Trouble concentrating on things, such as reading the newspaper or watching television: not at all 8. Moving or speaking so slowly that other people could have noticed. Or the opposite - being so fidgety or restless that you have been moving around a lot more than usual: not at all 9. Thoughts that you would be better off or of hurting yourself in some way: not at all Total score: 0 Source: Developed by Drs. Maikol Chaudhary, Sherin Barragan, Michael Mitchell and colleagues, with an educational rebecca from [employer]. Thrive Questionnaire Date Thrive assessed: 09/22/24 I am a: Patient What is your living situation today?: I have a steady place to live Within the past 12 months, did the food you bought not last and you didn't have the money to get more?: Never true Within the past 12 months, did you worry whether your food would run out before you got money to buy more?: Never true Do you have trouble paying for medicines?: No Do you have trouble getting transportation to medical appointments?: No Do you have trouble paying your heating and electricity bill?: No Do you have trouble taking care of your child, family member or friend?: No Do you have trouble with day-to-day activities such as bathing, preparing meals, shopping, managing finances, etc.?: No Are you currently unemployed and looking for a job?: No Are you interested in more education?: No Please select the resources that you would like help with: None Currently or been in a relationship where the following occur: No concerns reported THRIVE Score: 0 AUDIT C Alcohol Use Questionnaire (AUDIT-C) 1. How often do you have a drink containing alcohol?: Monthly or less 2. How many drinks containing alcohol do you have on a typical day when you are drinking?: 1 or 2 3. How often do you have six or more drinks on one occasion?: Never Total Score: 1 AGUSTINA-7 AMB Questionnaire AGUSTINA-7 Date AGUSTINA - 7 assessed: 04/21/24 Feeling nervous, anxious, or on edge: 0 = Not at all Not being able to stop or control worryin = Not at all Worrying too much about different things: 0 = Not at all Trouble relaxin = Not at all Being so restless that it is hard to sit still: 0 = Not at all Becoming easily annoyed or irritable: 0 = Not at all Feeling afraid as if something awful might happen: 0 = Not at all Total AGUSTINA-7 score (0-4 normal; 5-9 mild; 10-14 moderate; 15-21 severe): 0 Source: Developed by Drs. Maikol Chaudhary, Sherin Barragan, Michael Mitchell and colleagues, with an educational rebecca from [employer]. Review of Systems Const Denies chills, Denies fatigue, Denies fever(s), Denies headache(s) and Denies weakness ENT Denies dizziness and Denies headache(s) Card Denies dyspnea Resp Denies cough, Denies dyspnea, Denies wheezing and Denies other (shortness of breath) Musc Reports back pain, Denies numbness and Denies tingling Neuro Denies dizziness, Denies headache(s), Denies numbness, Denies tingling and Denies weakness Psych Denies anxiety and Denies depression Endo Denies fatigue Aller/Immun Denies wheezing Physical exam (Primary Care) Vital Signs: Last Vital Signs Pulse 74 09/25/24 08:52 Resp 14 09/25/24 08:52 BP 110/70 09/25/24 08:52 Pulse Ox 95 09/25/24 08:52 Oxygen Delivery Method Room Air 09/25/24 08:52 BMI result Body Mass Index 49.6 Tobacco/Smoking Status: Tobacco use Status Tobacco use date assessed 12/21/23 09/25/24 08:55 Patient Tobacco Use Status Current everyday Tobacco 09/25/24 08:55 Tobacco use type Smokeless Tobacco 09/25/24 08:55 e-Cigarette/Vaping Use Never Used 09/25/24 08:55 PHQ-9: PHQ-9 Score PHQ-9: Total score 0 09/25/24 08:55 Thrive Assessment: Date of Thrive Assessment Date Thrive assessed 09/22/24 09/25/24 08:55 Currently or been in a relationship where the following occur: No concerns reported Const General: well developed; No acute distress Nutritional Appearance: well nourished Orientation/consciousness: patient oriented x3 HENMT Head: Yes normocephalic and Yes atraumatic Eyes General: appearance normal, both eyes and all related structures Pupils: Equal, round and reactive pupils present EOM: EOMs intact bilaterally Resp Effort & Inspection: normal respiratory effort Auscultation: clear to auscultation bilaterally Cardio Rate: regular rate Rhythm: regular rhythm Heart sounds: S1 normal heart sound present, S2 normal heart sound present, no gallops, no murmurs and no rubs Neuro General: patient oriented x3 and gait normal Cranial nerves: Yes Equal, round and reactive pupils present Psych Affect: normal affect Coding Level of Care Code Est Pt Level 4 (54947) Diagnoses Diabetes type 2, controlled E11.9 Essential hypertension I10 Back pain M54.9 Morbid obesity E66.01 Assessment & Plan Assessment & Plan (1) Diabetes type 2, controlled: Code(s): E11.9 - Type 2 diabetes mellitus without complications Category: Medical Plan: A1c?6.4%.??Good?control.??Goal?is?less?than?7.0% Continue?metformin?as?prescribed (2) Essential hypertension: Code(s): I10 - Essential (primary) hypertension Category: Medical Plan: Blood?pressure?is?well?controlled.??Goal?is?less?than?140/90 Continue?current?medication (3) Back pain: Code(s): M54.9 - Dorsalgia, unspecified Category: Medical Plan: Discussed?physical?therapy?but?patient?says?he?is?not?able?to?spend?the?time?or?money?for?this Encouraged?gentle?stretching?and?exercises?to?improve?or?and?back?strength Can?try?NSAIDs.??In?script?for?meloxicam Is?pain?management?specialist?was?discussing?gabapentin?and?I?gave?a?script?for?gabapentin?300?mg?q.h.s. Encouraged?weight?loss (4) Morbid obesity: Code(s): E66.01 - Morbid (severe) obesity due to excess calories Category: Medical Plan: As?above,?we?discussed?weight?loss?with?gradual?increases?in?exercise?and?also?decrease?portion?sizes?with?meals Medications: New meloxicam 7.5 mg PO DAILY 90 days 90 tabs 3RF gabapentin 300 mg PO BEDTIME 90 days 90 caps 1RF Changed From lisinopril 40 mg PO DAILY 90 tabs 4RF To lisinopril 40 mg PO DAILY 90 days 90 tabs 4RF Refilled lisinopril 40 mg PO DAILY 90 tabs 4RF metformin 500 mg PO DAILY 90 tabs 3RF Z00.00 - Encounter for general adult medical examination without abnormal findings atorvastatin 20 mg PO DAILY 90 tabs 3RF E78.2 - Mixed hyperlipidemia
[2024-09-25 08:52] VITALS: BP 110/70; PULSE 74; RESP 14; O2SAT 95; BMI 49.6
== END 2024-09-25 09:19 | disposition home or self-care (01) ==
PROVIDERS: PCP Family Medicine; Visit Provider Family Medicine
DX: E11.9 Type 2 diabetes mellitus without complications (principal); I10 Essential (primary) hypertension; M54.9 Dorsalgia, unspecified; E66.01 Morbid (severe) obesity due to excess calories; Z68.41 Body mass index [BMI] 40.0-44.9, adult

== ENCOUNTER → 2024-09-25 08:31 | Outpatient (BNVA) | payer OTHER, SELFPAY | PROVIDERS: PCP Family Medicine; Visit Provider Family Medicine | DX: E11.9 Type 2 diabetes mellitus without complications (principal); I10 Essential (primary) hypertension; M54.9 Dorsalgia, unspecified; E66.01 Morbid (severe) obesity due to excess calories; Z68.42 Body mass index [BMI] 45.0-49.9, adult; Z79.84 Long term (current) use of oral hypoglycemic drugs; Z79.899 Other long term (current) drug therapy | CPT/HCPCS: 83036; 96127 ==

== ENCOUNTER 2025-01-12 16:17 | Outpatient (AMB) | payer OTHER, SELFPAY ==
--- NOTE | 2025-01-12 16:31 | A.OFFPC_ITS ---
Vital Signs 01/12/25 16:33 Height 5 ft 6 in Weight 315 lb 8 oz BMI 50.9 BP 134/76 Blood Pressure Location Lt brachial Position Sitting Respiration 16 Pulse 82 Pulse Source Pulse Oximeter Temp 98.9 F Temp Source Oral Pulse Oximetry (%) 97 Oxygen Delivery Method Room Air Intake Visit Reasons: f/u DM, HTN Allergies No Known Allergies [No Known Allergies*] Allergy (Verified 01/12/25 16:32) Medication List - Last Reconciled 01/12/25 by Mateus Frye MD atorvastatin 20 mg PO DAILY dorzolamide-timolol 22.3-6.8 mg/mL 1 drp ophthalmic (eye) BID gabapentin 300 mg PO BEDTIME 90 days lisinopril 40 mg PO DAILY 90 days meloxicam 7.5 mg PO DAILY 90 days metformin 500 mg PO DAILY Tobacco use date assessed: 01/12/25 Dental Screening Dental Screen Date: 01/12/25 Did you have a dental visit in the last 12 months?: Yes Did you have a dental problem in the last 6 months where you did not have access to dental care?: No HPI f/u DM, HTN HPI Details 54 y/o male presents to f/u diabetes, HT N. Last A1c 09/25/24 6.4%. He is on metformin 500mg daily. A1c today climbed to 6.9%. BP today 134/76, 82p. He is on lisinopril 40mg daily. [facility] Medical History No pertinent past medical history Surgical History No pertinent past surgical history Social History (Updated 04/21/24 @ 09:02 by CATHERINE Matias) Household Members: Spouse and Children Housing: House Alcohol intake: current Alcohol intake frequency: holidays/special occasions only Patient Tobacco Use Status: Current everyday Tobacco user Tobacco use type: Smokeless Tobacco Years Smoked: Not smoking since June of 2022, Uses pouch. e-Cigarette/Vaping Use: Never Used Substance Use Type: Marijuana service: No Current occupational status: employed Current occupation: [employer] Current occupational exposures/hazards: No Sexual orientation: Unable to collect Gender identity: Unable to collect Cognitive needs: No Hearing needs: No Vision needs: Yes (wears glasses) Questionnaire PHQ-9 Over the last 2 weeks, how often have you been bothered by any of the following problems? 1. Little interest or pleasure in doing things: not at all 2. Feeling down, depressed, or hopeless: not at all 3. Trouble falling or staying asleep, or sleeping too much: not at all 4. Feeling tired or having little energy: not at all 5. Poor appetite or overeating: not at all 6. Feeling bad about yourself - or that you are a failure or have let yourself or your family down: not at all 7. Trouble concentrating on things, such as reading the newspaper or watching television: not at all 8. Moving or speaking so slowly that other people could have noticed. Or the opposite - being so fidgety or restless that you have been moving around a lot more than usual: not at all 9. Thoughts that you would be better off or of hurting yourself in some way: not at all Total score: 0 Depression Screening Interpretation: Negative Depression Screening Done: Yes 48489 - PHQ-9 Billing: Yes Source: Developed by Drs. Maikol Chaudhary, Sherin Barragan, Michael Mitchell and colleagues, with an educational rebecca from [employer]. Thrive Questionnaire Date Thrive assessed: 01/12/25 I am a: Patient What is your living situation today?: I have a steady place to live Within the past 12 months, did the food you bought not last and you didn't have the money to get more?: Never true Within the past 12 months, did you worry whether your food would run out before you got money to buy more?: Never true Do you have trouble paying for medicines?: No Do you have trouble getting transportation to medical appointments?: No Do you have trouble paying your heating and electricity bill?: No Do you have trouble taking care of your child, family member or friend?: No Do you have trouble with day-to-day activities such as bathing, preparing meals, shopping, managing finances, etc.?: No Are you currently unemployed and looking for a job?: No Are you interested in more education?: No Please select the resources that you would like help with: None Currently or been in a relationship where the following occur: No concerns reported THRIVE Score: 0 AGUSTINA-7 AMB Questionnaire AGUSTINA-7 Date AGUSTINA - 7 assessed: 04/21/24 Feeling nervous, anxious, or on edge: 0 = Not at all Not being able to stop or control worryin = Not at all Worrying too much about different things: 0 = Not at all Trouble relaxin = Not at all Being so restless that it is hard to sit still: 0 = Not at all Becoming easily annoyed or irritable: 0 = Not at all Feeling afraid as if something awful might happen: 0 = Not at all Total AGUSTINA-7 score (0-4 normal; 5-9 mild; 10-14 moderate; 15-21 severe): 0 Source: Developed by Drs. Maikol Chaudhary, Sherin Barragan, Michael Mitchell and colleagues, with an educational rebecca from [employer]. AGUSTINA-7 Assessment Billing AGUSTINA-7 Assessment Tool: AGUSTINA-7 Assessment 28239 Review of Systems Const Denies chills, Denies fatigue, Denies fever(s), Denies headache(s) and Denies weakness ENT Denies dizziness and Denies headache(s) Card Denies dyspnea Resp Denies cough, Denies dyspnea, Denies wheezing and Denies other (shortness of breath) Musc Denies numbness and Denies tingling Neuro Denies dizziness, Denies headache(s), Denies numbness, Denies tingling and Denies weakness Psych Denies anxiety and Denies depression Endo Denies fatigue Aller/Immun Denies wheezing Physical exam (Primary Care) Vital Signs: Last Vital Signs Temp 98.9 F 01/12/25 16:33 Pulse 82 01/12/25 16:33 Resp 16 01/12/25 16:33 BP 134/76 01/12/25 16:33 Pulse Ox 97 01/12/25 16:33 Oxygen Delivery Method Room Air 01/12/25 16:33 BMI result Body Mass Index 50.9 Tobacco/Smoking Status: Tobacco use Status Tobacco use date assessed 01/12/25 01/12/25 16:34 Patient Tobacco Use Status Current everyday Tobacco 01/12/25 16:34 Tobacco use type Smokeless Tobacco 01/12/25 16:34 e-Cigarette/Vaping Use Never Used 05/05/25 16:34 PHQ-9: PHQ-9 Score PHQ-9: Total score 0 01/12/25 16:38 Depression Screening Interpretation: Negative Thrive Assessment: Date of Thrive Assessment Date Thrive assessed 01/12/25 01/12/25 16:34 Currently or been in a relationship where the following occur: No concerns re ported Const General: well developed; No acute distress Nutritional Appearance: well nourished Orientation/consciousness: patient oriented x3 HENMT Head: Yes normocephalic and Yes atraumatic Eyes General: appearance normal, both eyes and all related structures Pupils: Equal, round and reactive pupils present EOM: EOMs intact bilaterally Resp Effort & Inspection: normal respiratory effort Neuro General: patient oriented x3 and gait normal Cranial nerves: Yes Equal, round and reactive pupils present Psych Affect: normal affect Coding Level of Care Code Est Pt Level 3 (13456) Diagnoses Diabetes type 2, controlled E11.9 Essential hypertension I10 Additional Codes AGUSTINA-7 Assessment Billing - AGUSTINA-7 Assessment Tool: AGUSTINA-7 Assessment 51894 ([id number]) PHQ-9 - 22675 - PHQ-9 Billing: Yes ([id number]) Assessment & Plan Assessment & Plan (1) Diabetes type 2, controlled: Code(s): E11.9 - Type 2 diabetes mellitus without complications Category: Medical Plan: A1c?has?climbed?to?6.9%. Controlled.??Goal?is?less?than?7.0% Patient?notes?that?he?has?gained?considerable?amount?of?weight?since? his?last?visit Encouraged?weight?loss?and?diabetic?diet.??Continue?medication?as?prescribed. Also?discussed?GLP?1?agonist?medication?briefly.??He?will?consider?this. Up-to-date?with?diabetic?eye?exam.??No?diabetic?retinopathy (2) Essential hypertension: Code(s): I10 - Essential (primary) hypertension Category: Medical Plan: Blood?pressure?has?climbed?though?still?controlled.??Goal?is?less?than?140/90 Continue?current?medication Encouraged?weight?loss
[2025-01-12 16:33] VITALS: BP 134/76; PULSE 82; RESP 16; TEMP 37.2; O2SAT 97; BMI 50.9
== END 2025-01-12 17:05 ==
LOC: HO.HMCFM 16:18
PROVIDERS: PCP Family Medicine; Visit Provider Family Medicine
DX: E11.9 Type 2 diabetes mellitus without complications (principal); I10 Essential (primary) hypertension

== ENCOUNTER → 2025-01-12 16:17 | Outpatient (BNVA) | payer OTHER, SELFPAY | PROVIDERS: PCP Family Medicine; Visit Provider Family Medicine | DX: E11.9 Type 2 diabetes mellitus without complications (principal); I10 Essential (primary) hypertension | CPT/HCPCS: 83036; 96127 ==

== ENCOUNTER 2025-03-02 15:48 | Outpatient (AMB) | payer OTHER, SELFPAY ==
--- NOTE | 2025-03-02 15:44 | A.OFFVIS_ITS ---
Intake Visit Reasons: 1yr Intake Note: Patient is Present for telehealth Urology Medication: None Antibiotic Allergies: None Blood Thinners: None Relations Director Required: No Allergies No Known Allergies (No Known Allergies*) Allergy (Verified 01/12/25 16:32) Medication List - Last Reconciled 03/02/25 by Shahriar Holland MD atorvastatin 20 mg PO DAILY dorzolamide-timolol 22.3-6.8 mg/mL 1 drp ophthalmic (eye) BID gabapentin 300 mg PO BEDTIME 90 days lisinopril 40 mg PO DAILY 90 days meloxicam 7.5 mg PO DAILY 90 days metformin 500 mg PO DAILY HPI Comments Details: 03/02/25--Jose Rafael is a 54-year-old male who is evaluated today via TeleHealth follow-up due to left scrotal swelling. He states that he has been doing well denies any significant pain. He states there has not been an increase in scrotal swelling. He had prior scrotal ultrasounds the last 1 done 02/05/2024 --left epididymal cyst versus spermatocele. In review of his chart he had a PSA done last year 04/15/2024 PSA of 0.28 ng/mL. At this time we will follow-up on a PRN basis and have his PCP continue PSA screening 03/03/24--Jose Rafael is a 53-year-old male who presents today for follow up of epididymal left epididymal cyst versus spermatocele. I have reviewed follow-up scrotal ultrasound 02/05/2024. There is no significant change in the left epididymal cyst/spermatocele. The patient states he may get occasional d iscomfort in the scrotum he denies pain. I have discussed conservative management at this time. No indication for repeat ultrasound at this time. Follow-up in 1 year 06/04/2023?He is present today for an evaluation of scrotal swelling. He was referred to urology office by his PCP. He states he noted in November that his scrotum was larger than usual, denies testicular pain or changes in urination. 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 4.4 x 3.7 x 2.7 cm left epididymal cyst versus spermatocele. No testicular masses, normal flow. Discussed exam and US is consistent with benign epididymal cyst, will monitor to see if it gets larger or is symptomatic/causes pain. Evaluation today?UA? leukocytes: negative; blood: negative. Follow up in 9 months to re-evaluate and US of the scrotum at that time. [facility] Medical History No pertinent past medical history Surgical History No pertinent past surgical history Social History Household Members: Spouse and Children Housing: House Alcohol intake: current Alcohol intake frequency: holidays/special occasions only Patient Tobacco Use Status: Current everyday Tobacco user Tobacco use type: Smokeless Tobacco Years Smoked: Not smoking since June of 2022, Uses pouch. e-Cigarette/Vaping Use: Never Used Substance Use Type: Marijuana service: No Current occupational status: employed Current occupation: [employer] Current occupational exposures/hazards: No Sexual orientation: Unable to collect Gender identity: Unable to collect Cognitive needs: No Hearing needs: No Vision needs: Yes (wears glasses) Review of Systems Const All systems reviewed & are unremarkable except as noted in HPI and below Reports no additional complaints Eyes Reports no additional complaints ENT Reports no additional complaints Card Reports no additional complaints Resp Reports no additional complaints GI Reports no additional complaints Reports as per HPI Musc Reports no additional complaints Skin/Breast Reports system reviewed and no additional complaints, except as documented Neuro Reports no additional complaints Psych Reports no additional complaints Endo Reports no additional complaints Bakari/Lymph Reports no additional complaints Aller/Immun Reports no additional complaints Telehealth Telehealth Telehealth Platform: [facility] Location of provider rendering services: practice address Location of patient: address on file Patient Identification confirmed using: Name, : Yes Telehealth method: voice only Patient verbally consented to treatment: Yes Patient verbally consented to billing insurance company: Yes Patient informed of any privacy concerns related to visit: Yes Minutes spent on Phone/Video with Pt.: 12 Assessment & Plan Assessment & Plan (1) Epididymal cyst: Code(s): N50.3 - Cyst of epididymis Category: Medical (2) Scrotal swelling: Code(s): N50.89 - Other specified disorders of the male genital organs Category: Medical Plan Patient asymptomatic. Conservative management. prior scrotal ultrasounds the last 1 done 02/05/2024 --left epididymal cyst versus spermatocele. In review of his chart he had a PSA done last year 04/15/2024 PSA of 0.28 ng/mL. At this time we will follow-up on a PRN basis and have his PCP continue PSA screening Patient Instructions: The patient had an opportunity to ask questions regarding treatment plan. The patient expressed understanding and agreement with the above treatment plan. The patient is aware they should contact our office by phone for worsening of their current condition or the appearance of new symptoms. Compliance is encouraged with any medications and followup testing that is ordered. It is a privilege to be allowed the opportunity to participate in the urologic care of your patient. If you have any questions or concerns regarding treatment for the above conditions please do not hesitate to contact me. The office telephone contact is [phone]. This note is constructed in part using voice recognition software. While every effort has been made to ensure accuracy cycle consultant errors may have been included. Yours sincerely, Shahriar Holland MD Coding Level of Care Code Tele Est Pt Level 3 (65148) Diagnoses Epididymal cyst N50.3 Scrotal swelling N50.89
== END 2025-03-02 15:49 | disposition home or self-care (01) ==
LOC: HO.HUSH 15:48
PROVIDERS: PCP Family Medicine; Visit Provider Urology
DX: N50.3 Cyst of epididymis (principal); N50.89 Other specified disorders of the male genital organs
CPT/HCPCS: 99213

== ENCOUNTER 2025-04-17 08:22 | Outpatient (AMB) | payer OTHER, SELFPAY ==
--- NOTE | 2025-04-17 08:25 | MHC.PC.OV ---
Vital Signs 04/17/25 08:29 Height 5 ft 6 in Weight 306 lb 2 oz BMI 49.4 BP 151/84 H Blood Pressure Location Lt brachial Position Sitting Respiration 13 Pulse 52 Pulse Source Pulse Oximeter Temp 96.4 F L Temp Source Temporal Artery Scan Pulse Oximetry (%) 98 Oxygen Delivery Method Room Air Intake Visit Reasons: f/u DM, HTN Intake Note: Follow up on htn and dm. Allergies No Known Allergies (No Known Allergies*) Allergy (Verified 04/17/25 08:29) Medication List - Last Reconciled 04/17/25 by Mateus Frye MD atorvastatin 20 mg PO DAILY dorzolamide-timolol 22.3-6.8 mg/mL 1 drp ophthalmic (eye) BID gabapentin 300 mg PO BEDTIME 90 days lisinopril 40 mg PO DAILY 90 days meloxicam 7.5 mg PO DAILY 90 days metformin 500 mg PO DAILY Tobacco use date assessed: 04/17/25 Dental Screening Dental Screen Date: 04/17/25 Did you have a dental visit in the last 12 months?: Yes Did you have a dental problem in the last 6 months where you did not have access to dental care?: No Was dental information given to patient?: Patient has dentist HPI f/u DM, HTN HPI Details 54 y/o male presents to f/u diabetes, HTN. BP today 151/84, 52p. He is on lisinopril 40mg. A1c today 04/17/25 6.3%. He is on metformin 500mg. He had his diabetic eye exam in December and was fine. HPI Comments History of Present Illness Details Documentation assistance for Mateus Frye MD, was provided by Heber Mcfarlane, Adoption Worker on 04/17/2025 at 8:48 AM EST. Gaytan, Dr. Frye, have read, observed, and verified documentation. [facility], [facility] Medical History No pertinent past medical history Surgical History No pertinent past surgical history Social History Household Members: Spouse and Children Housing: House Alcohol intake: current Alcohol intake frequency: holidays/special occasions only Patient Tobacco Use Status: Current everyday Tobacco user Tobacco use type: Smokeless Tobacco Years Smoked: Not smoking since June of 2022, Uses pouch. e-Cigarette/Vaping Use: Never Used Substance Use Type: Marijuana service: No Current occupational status: employed Current occupation: [employer] Current occupational exposures/hazards: No Sexual orientation: Unable to collect Gender identity: Unable to collect Cognitive needs: No Hearing needs: No Vision needs: Yes (wears glasses) Questionnaire PHQ-9 Over the last 2 weeks, how often have you been bothered by any of the following problems? 1. Little interest or pleasure in doing things: not at all 2. Feeling down, depressed, or hopeless: not at all 3. Trouble falling or staying asleep, or sleeping too much: not at all 4. Feeling tired or having little energy: not at all 5. Poor appetite or overeating: not at all 6. Feeling bad about yourself - or that you are a failure or have let yourself or your family down: not at all 7. Trouble concentrating on things, such as reading the newspaper or watching television: not at all 8. Moving or speaking so slowly that other people could have noticed. Or the opposite - being so fidgety or restless that you have been moving around a lot more than usual: not at all 9. Thoughts that you would be better off or of hurting yourself in some way: not at all Total score: 0 Depression Screening Interpretation: Negative Depression Screening Done: Yes 60839 - PHQ-9 Billing: Yes Source: Developed by Drs. Maikol Chaudhary, Sherin Barragan, Michael Mitchell and colleagues, with an educational rebecca from [employer]. Thrive Questionnaire Date Thrive assessed: 04/17/25 I am a: Patient What is your living situation today?: I have a steady place to live Within the past 12 months, did the food you bought not last and you didn't have the money to get more?: Never true Within the past 12 months, did you worry whether your food would run out before you got money to buy more?: Never true Do you have trouble paying for medicines?: No Do you have trouble getting transportation to medical appointments?: No Do you have trouble paying your heating and electricity bill?: No Do you have trouble taking care of your child, family member or friend?: No Do you have trouble with day-to-day activities such as bathing, preparing meals, shopping, managing finances, etc.?: No Are you currently unemployed and looking for a job?: No Are you interested in more education?: No Please select the resources that you would like help with: None Currently or been in a relationship where the following occur: No concerns reported THRIVE Score: 0 AGUSTINA-7 AMB Questionnaire AGUSTINA-7 Date AGUSTINA - 7 assessed: 04/17/25 Feeling nervous, anxious, or on edge: 0 = Not at all Not being able to stop or control worryin = Not at all Worrying too much about different things: 0 = Not at all Trouble relaxin = Not at all Being so restless that it is hard to sit still: 0 = Not at all Becoming easily annoyed or irritable: 0 = Not at all Feeling afraid as if something awful might happen: 0 = Not at all Total AGUSTINA-7 score (0-4 normal; 5-9 mild; 10-14 moderate; 15-21 severe): 0 Source: Developed by Drs. Maikol Chaudhary, Sherin Barragan, Michael Mitchell and colleagues, with an educational rebecca from [employer]. AGUSTINA-7 Assessment Billing AGUSTINA-7 Assessment Tool: AGUSTINA-7 Assessment 06945 Review of Systems Const Denies chills, Denies fatigue, Denies fever(s), Denies headache(s) and Denies weakness ENT Denies dizziness and Denies headache(s) Card Denies dyspnea Resp Denies cough, Denies dyspnea, Denies wheezing and Denies other (shortness of breath) Musc Denies numbness and Denies tingling Neuro Denies dizziness, Denies headache(s), Denies numbness, Denies tingling and Denies weakness Psych Denies anxiety and Denies depression Endo Denies fatigue Aller/Immun Denies wheezing Physical exam (Primary Care) Vital Signs: Last Vital Signs Temp 96.4 F L 04/17/25 08:29 Pulse 52 04/17/25 08:29 Resp 13 04/17/25 08:29 BP 151/84 H 04/17/25 08:29 Pulse Ox 98 04/17/25 08:29 Oxygen Delivery Method Room Air 04/17/25 08:29 BMI result Body Mass Index 49.4 Tobacco/Smoking Status: Tobacco use Status Tobacco use date assessed 04/17/25 04/17/25 08:32 Patient Tobacco Use Status Current everyday Tobacco 04/17/25 08:27 Tobacco use type Smokeless Tobacco 04/17/25 08:27 e-Cigarette/Vaping Use Never Used 04/17/25 08:27 PHQ-9: PHQ-9 Score PHQ-9: Total score 0 04/17/25 08:47 Depression Screening Interpretation: Negative Thrive Assessment: Date of Thrive Assessment Date Thrive assessed 04/17/25 04/17/25 08:27 Currently or been in a relationship where the following occur: No concerns reported Const General: well developed; No acute distress Nutritional Appearance: well nourished Orientation/consciousness: patient oriented x3 HENMT Head: Yes normocephalic and Yes atraumatic Eyes General: appearance normal, both eyes and all related structures Pupils: Equal, round and reactive pupils present EOM: EOMs intact bilaterally Resp Effort & Inspection: normal respiratory effort Auscultation: clear to auscultation bilaterally Cardio Rate: regular rate Rhythm: regular rhythm Heart sounds: S1 normal heart sound present, S2 normal heart sound present, no gallops, no murmurs and no rubs Neuro General: patient oriented x3 and gait normal Cranial nerves: Yes Equal, round and reactive pupils present Psych Affect: normal affect Results AMB Hemoglobin A1c AMB Hemoglobin A1c 6.3 % Last Edit by Denia Frey MA on 04/17/25 08:41 Results Reviewed Results Reviewed: Laboratory Last Values Hgb A1c (Clinic) 6.3 % (4.0-6.0) H 04/17/25 08:34 Coding Level of Care Code Est Pt Level 4 (54428) Diagnoses Diabetes type 2, controlled E11.9 Essential hypertension I10 Additional Codes AGUSTINA-7 Assessment Billing - AGUSTINA-7 Assessment Tool: AGUSTINA-7 Assessment 29029 ([id number]) PHQ-9 - 35476 - PHQ-9 Billing: Yes ([id number]) Assessment & Plan Assessment & Plan (1) Diabetes type 2, controlled: Code(s): E11.9 - Type 2 diabetes mellitus without complications Category: Medical Plan: A1c 6.3% today. Good control. Goal is less than 7.0% Continue current medication (2) Essential hypertension: Code(s): I10 - Essential (primary) hypertension Category: Medical Plan: Blood pressure is too high. Goal is less than 140/90 Continue lisinopril 40 mg daily Start an amlodipine 2.5 mg daily Orders: Orders AMB Hemoglobin A1c Today E11.9 - Type 2 diabetes mellitus without complications, Z13.9 - Encounter for screening, unspecified Comprehensive [place]. Panel Fast Today Z00.00 - Encounter for general adult medical examination without abnormal findings Complete Blood Count Auto Diff Today Z00.00 - Encounter for general adult medical examination without abnormal findings UA CC w/rflx Micro + Cult Today Z00.00 - Encounter for general adult medical examination without abnormal findings Prostate Specific Antigen Scr Today Z12.5 - Encounter for screening for malignant neoplasm of prostate Hemoglobin A1c Today R73.01 - Impaired fasting glucose Microalbumin, Random (w Creat) Today I10 - Essential (primary) hypertension Lipid Panel Today Z00.00 - Encounter for general adult medical examination without abnormal findings Medications: New amlodipine 2.5 mg PO DAILY 90 tabs 3RF 90 days
[2025-04-17 08:29] VITALS: BP 151/84; PULSE 52; RESP 13; TEMP 35.8; O2SAT 98; BMI 49.4
== END 2025-04-17 10:22 | disposition home or self-care (01) ==
LOC: HO.HMCFM 08:23
PROVIDERS: PCP Family Medicine; Visit Provider Family Medicine
DX: Z13.9 Encounter for screening, unspecified (principal); E11.9 Type 2 diabetes mellitus without complications; I10 Essential (primary) hypertension

== ENCOUNTER → 2025-04-17 08:22 | Outpatient (BNVA) | payer OTHER, SELFPAY | PROVIDERS: PCP Family Medicine; Visit Provider Family Medicine | DX: E11.9 Type 2 diabetes mellitus without complications (principal); I10 Essential (primary) hypertension | CPT/HCPCS: 83036; 96127 ==

== ENCOUNTER 2025-08-21 07:59 | Outpatient (REF) | payer OTHER, SELFPAY ==
[2025-08-21 11:09] LABS: MANUAL DIFF FLAG NO
[2025-08-21 11:17] LABS: Hematocrit 43.5 % (42.0-52.0); Hemoglobin 14.5 g/dl (14.0-18.0); Imm Gran Abs Auto 0.01 X10*3/uL (0.00-0.03); Imm Gran Pct Auto 0.2 % (0.0-0.4); Lymphocytes Absolute Auto 1.6 X10*3/uL (1.2-4.9); Mean Corpuscular HGB Conc 33.3 g/dl (31.0-36.0); Mean Corpuscular Hemoglobin 31.5 pg (27.0-33.0); Mean Corpuscular Volume 94.4 fL (80.0-98.0); NRBC Abs Auto 0.000 X10*3/uL (0.0-0.012); NRBC Pct Auto 0.0 /100WBC (0.0-0.2); Platelet Count 226 X10*3/uL (160-400); Red Blood Count 4.61 X10*6/uL (4.60-5.80); White Blood Count 4.5 X10*3/uL (4.8-10.8)
[2025-08-21 11:26] LABS: Alanine Aminotransferase 80 U/L (0-40); Albumin Level 4.5 g/dL (3.5-5.0); Alkaline Phosphatase 73 U/L (39-117); Anion Gap 9 (12-20); Aspartate Amino Transferase 48 U/L (5-37); Blood Urea Nitrogen 10 mg/dL (9-16); Calcium 9.8 mg/dL (8.4-10.2); Carbon Dioxide 29 mmol/L (22-29); Chloride 107 mmol/L (96-108); Cholesterol 168 mg/dL (<200); Estimated Glomerular Filt Rate > 60; HDL Cholesterol 43 mg/dL (>40); Potassium 4.6 mmol/L (3.3-5.1); Sodium 140 mmol/L (135-145); Total Protein 6.6 g/dL (6.5-8.0); Triglycerides 80 mg/dL (<150)
[2025-08-21 11:53] LABS: Appearance Urine Clear; Glucose Urine UA Negative (Negative); PH 6.5 (5.0-9.0); Specific Gravity - Urine 1.020 (1.005-1.025)
[2025-08-21 12:21] LABS: Microalbum/Creatinine Ratio Ur 4.1 ug/mg cr (<30)
== END 2025-08-21 08:00 | disposition home or self-care (01) ==
LOC: HO.WFDLDS 07:59
PROVIDERS: Visit Provider Family Medicine
DX: Z00.00 Encounter for general adult medical examination without abnormal findings (principal); Z12.5 Encounter for screening for malignant neoplasm of prostate; R73.01 Impaired fasting glucose; I10 Essential (primary) hypertension
CPT/HCPCS: 36415; 80053; 80061; 81003; 82043; 82570; 83036; 84153; 85025

== ENCOUNTER 2025-08-26 15:38 | Outpatient (AMB) | payer OTHER, SELFPAY ==
--- NOTE | 2025-08-26 15:54 | A.OFFPC_ITS ---
Vital Signs 08/26/25 15:59 Height 5 ft 11 in Weight 259 lb 6 oz BMI 36.2 BP 128/72 Blood Pressure Location Rt brachial Position Sitting Respiration 15 Pulse 64 Pulse Source Pulse Oximeter Temp 97.8 F Temp Source Temporal Artery Scan Pulse Oximetry (%) 98 Oxygen Delivery Method Room Air Intake Visit Reasons: CPE with f/u labs and health maint. Intake Note: Jose Rafael presents in the office today for his annual physical and a follow up to his lab results. Cream Separator Operator Required: No Allergies No Known Allergies (No Known Allergies*) Allergy (Verified 08/26/25 15:56) Medication List - Last Reconciled 08/26/25 by Mateus Frye MD amlodipine 2.5 mg PO DAILY 90 days atorvastatin 20 mg PO DAILY dorzolamide-timolol 22.3-6.8 mg/mL 1 drp ophthalmic (eye) BID gabapentin 300 mg PO BEDTIME 90 days lisinopril 40 mg PO DAILY 90 days meloxicam 7.5 mg PO DAILY 90 days metformin 250 mg (1/2 x 500 mg) PO DAILY Tobacco use date assessed: 08/26/25 Dental Screening Dental Screen Date: 08/26/25 Did you have a dental visit in the last 12 months?: Yes Did you have a dental problem in the last 6 months where you did not have access to dental care?: No Was dental information given to patient?: Patient has dentist HPI CPE with f/u labs and health maint. HPI Details 54 y/o male presents for a CPE with f/u labs and health maint. Labs drawn 08/21/25. Reviewed labs with pt. Elevated liver enzymes - AST 48, ALT 80. Triglycerides 80. TC 168. LDL 109. HDL 43. Reports some constipation. HPI Comments History of Present Illness Details Documentation assistance for Mateus Frye MD, was provided by Heber Mcfarlane,? Dog Warden on 08/26/2025 at 4:59 PM EST. I, Dr. Frye, have read, observed, and verified documentation. ?? [facility] Medical History No pertinent past medical history Surgical History No pertinent past surgical history Social History (Updated 08/26/25 @ 15:58 by Nicky Mclean CMA) Household Members: Spouse and Children Housing: House Alcohol intake: current Alcohol intake frequency: holidays/special occasions only Patient Tobacco Use Status: Current everyday Tobacco user Tobacco use type: Smokeless Tobacco Years Smoked: Not smoking since June of 2022, Uses pouch. e-Cigarette/Vaping Use: Never Used Second Hand Smoke Exposure: No Use of substances other than those prescribed or required for medical reasons: No Substance Use Type: Marijuana service: No Current occupational status: employed Current occupation: [employer] Current occupational exposures/hazards: No Sexual orientation: Unable to collect Gender identity: Unable to collect Cognitive needs: No Hearing needs: No Vision needs: Yes (wears glasses) Questionnaire Thrive Questionnaire Date Thrive assessed: 04/17/25 I am a: Patient What is your living situation today?: I have a steady place to live Within the past 12 months, did the food you bought not last and you didn't have the money to get more?: Never true Within the past 12 months, did you worry whether your food would run out before you got money to buy more?: Never true Do you have trouble paying for medicines?: No Do you have trouble getting transportation to medical appointments?: No Do you have trouble paying your heating and electricity bill?: No Do you have trouble taking care of your child, family member or friend?: No Do you have trouble with day-to-day activities such as bathing, preparing meals, shopping, managing finances, etc.?: No Are you currently unemployed and looking for a job?: No Are you interested in more education?: No Please select the resources that you would like help with: None Currently or been in a relationship where the following occur: No concerns reported THRIVE Score: 0 AUDIT C Alcohol Use Questionnaire (AUDIT-C) 1. How often do you have a drink containing alcohol?: Monthly or less 2. How many drinks containing alcohol do you have on a typical day when you are drinking?: 1 or 2 3. How often do you have six or more drinks on one occasion?: Never Total Score: 1 AGUSTINA-7 AMB Questionnaire AGUSTINA-7 Date AGUSTINA - 7 assessed: 04/17/25 Source: Developed by Drs. Maikol Chaudhary, Sherin Barragan, Michael Mitchell and colleagues, with an educational rebecca from [employer]. Review of Systems Const Denies chills, Denies fatigue, Denies fever(s), Denies headache(s) and Denies weakness Eyes Denies change in vision ENT Denies dizziness, Denies headache(s), Denies hearing loss, Denies nasal congestion, Denies sinus pain, Denies sinus pressure and Denies sore throat Card Denies chest pain, Denies lightheadedness, Denies dyspnea and Denies other (palpitations) Resp Denies cough, Denies dyspnea and Denies wheezing GI Denies abdominal pain, Denies melena, Denies hematochezia, Denies change in bowel habits, Reports constipation, Denies dyspepsia and Denies nausea Denies hematuria and Denies dysuria Musc Denies abnormal gait, Denies myalgias, Denies arthralgias, Denies numbness and Denies tingling Skin/Breast Denies rash, Denies unusual bruising and Denies wounds Neuro Denies abnormal gait, Denies dizziness, Denies headache(s), Denies memory loss, Denies numbness, Denies Sensory deficit (Neuro), Denies tingling and Denies weakness Psych Denies anxiety, Denies depression and Denies memory loss Endo Denies cold intolerance, Denies fatigue, Denies heat intolerance, Denies polydipsia and Denies polyuria Bakari/Lymph Denies easy bleeding and Denies easy bruising Aller/Immun Denies wheezing Physical exam (Primary Care) Vital Signs: Last Vital Signs Temp 97.8 F 08/26/25 15:59 Pulse 64 08/26/25 15:59 Resp 15 08/26/25 15:59 BP 128/72 08/26/25 15:59 Pulse Ox 98 08/26/25 15:59 Oxygen Delivery Method Room Air 08/26/25 15:59 BMI result Body Mass Index 36.2 Tobacco/Smoking Status: Tobacco use Status Tobacco use date assessed 08/26/25 08/26/25 16:02 Patient Tobacco Use Status Current everyday Tobacco 08/26/25 15:58 Tobacco use type Smokeless Tobacco 08/26/25 15:58 e-Cigarette/Vaping Use Never Used 08/26/25 15:58 Thrive Assessment: Date of Thrive Assessment Date Thrive assessed 04/17/25 08/26/25 15:56 Currently or been in a relationship where the following occur: No concerns reported Const General: no acute distress, well developed, alert and awake Nutritional Appearance: well nourished Orientation/consciousness: patient oriented x3 [facility] Head: Yes normocephalic and Yes atraumatic Ears: hearing grossly normal bilaterally and TM's normal bilaterally General nose exam: Normal external nose present and Normal nares present Mouth: Normal oral and palatal mucosa present and moist mucous membranes Teeth and gingiva: dentition normal Throat: Yes posterior oropharynx normal Eyes General: appearance normal, both eyes and all related structures Pupils: Equal, round and reactive pupils present and Pupil accommodation reflex normal EOM: EOMs intact bilaterally Neck Neck: Yes normal visual inspection, Yes no lymphadenopathy and Yes trachea midline Thyroid: Thyroid normal Carotids: no bruits Lymphatic: no lymphadenopathy noted Chest Chest palpation & inspection: normal inspection of the chest Resp Effort & Inspection: normal respiratory effort Auscultation: clear to auscultation bilaterally Cardio Rate: regular rate Rhythm: regular rhythm Heart sounds: S1 normal heart sound present, S2 normal heart sound present, no gallops, no murmurs and no rubs Bruits: no abdominal aortic bruits and no carotid bruits GI Palpation (GI): No Abdominal aortic bruit present, Soft to palpation, nontender, No hepatosplenomegaly present and No Rebound tenderness present Auscultation: normal bowel sounds General: Yes no CVA tenderness Back/Spine/Pelvis Back: no CVA tenderness Cervical Spine: cervical ROM normal and No Cervical spine tenderness Thoracic/Lumbar Spine: thoraco-lumbar ROM normal, No pain with thoraco-lumbar ROM, No thoracic spinal tenderness and No lumbar spinal tenderness Skin Lesions: no lesions Rashes: no rashes Trauma: no lacerations or abrasions Wounds: no wounds Nails: normal Neuro General: patient oriented x3 Cranial nerves: Yes Equal, round and reactive pupils present Cognition (Neuro): normal cognition Gait exam (Neuro): Normal gait present Motor exam (neuro): 5/5 motor strength present throughout Sensory Exam: No Sensory deficit (Neuro) Deep tendon reflexes (DTR's): Right patellar reflex intensity grade: 2+ and Left patellar reflex intensity grade: 2+ Extrem General: Yes normal to inspection and No edema Psych Appearance: grossly normal Affect: normal affect Attitude: cooperative Thought process: Normal thought process present Coding Level of Care Code Est Pt Level 3 (33193) Est Pt Prev Care 40-64y(14309) Diagnoses Essential hypertension I10 Mixed hyperlipidemia E78.2 Constipation K59.00 Diabetes type 2, controlled E11.9 Screening for colon cancer Z12.11 Screening for prostate cancer Z12.5 Elevated liver enzymes R74.8 Assessment & Plan Assessment & Plan (1) Essential hypertension: Code(s): I10 - Essential (primary) hypertension Category: Medical Plan: Blood pressure much improved with addition of amlodipine. Goal is less than 140/90 Continue lisinopril and amlodipine as prescribed (2) Mixed hyperlipidemia: Code(s): E78.2 - Mixed hyperlipidemia Category: Medical Plan: LDL cholesterol rod and is slightly above goal. Work at diet lower in saturated fats and cholesterol Continue weight loss and exercise (3) Constipation: Code(s): K59.00 - Constipation, unspecified Category: Medical Plan: Increase hydration (4) Diabetes type 2, controlled: Code(s): E11.9 - Type 2 diabetes mellitus without complications Category: Medical Plan: A1c now 5.4%. Good control. Goal is less than 7% Patient would like to try decreasing metformin Will decrease metformin from 500 mg daily to 250 mg daily Follow-up in 3 months (5) Screening for colon cancer: Code(s): Z12.11 - Encounter for screening for malignant neoplasm of colon Category: Medical Plan: Patient saw Dr. Vasquez for colonoscopy in 2019 She recommended a 7 year follow-up Up-to-date Follow-up in 2 more years (6) Screening for prostate cancer: Code(s): Z12.5 - Encounter for screening for malignant neoplasm of prostate Category: Medical Plan: PSA was within normal range Continue annual screening (7) Elevated liver enzymes: Code(s): R74.8 - Abnormal levels of other serum enzymes Category: Medical Plan: Patient has history of nonalcoholic hepatic steatosis Liver enzymes were within normal range at recent check but at most recent measurement they are elevated. He has had significant and rather rapid weight loss and also may have some dehydration. Increase hydration Will recheck this with next blood draw Orders: Orders Comprehensive [place]. Panel Fast Today K75.81 - Nonalcoholic steatohepatitis (WATTS), Z00.00 - Encounter for general adult medical examination without abnormal findings Lipid Panel Today E78.5 - Hyperlipidemia, unspecified, Z00.00 - Encounter for general adult medical examination without abnormal findings Hemoglobin A1c Today E11.9 - Type 2 diabetes mellitus without complications, R73.01 - Impaired fasting glucose Medications: Changed From metformin 500 mg PO DAILY 90 tabs 3RF Z00.00 - Encounter for general adult medical examination without abnormal findings To metformin 250 mg (1/2 x 500 mg) PO DAILY 90 tabs 3RF Z00.00 - Encounter for general adult medical examination without abnormal findings
[2025-08-26 15:59] VITALS: BP 128/72; PULSE 64; RESP 15; TEMP 36.6; O2SAT 98; BMI 36.2
== END 2025-08-26 17:05 | disposition home or self-care (01) ==
LOC: HO.HMCFM 15:39
PROVIDERS: PCP Family Medicine; Visit Provider Family Medicine
DX: Z00.00 Encounter for general adult medical examination without abnormal findings (principal); E11.9 Type 2 diabetes mellitus without complications; I10 Essential (primary) hypertension; E78.2 Mixed hyperlipidemia; K59.00 Constipation, unspecified; R74.8 Abnormal levels of other serum enzymes